=== PATIENT | male | born 1955 | race Caucasian/White ===

== ENCOUNTER 2018-09-22 18:26 | Emergency (ER) | payer OTHER ==
--- NOTE | 2018-09-22 18:42 | PDOC ---
History of Present Illness - General Stated Complaint: VOMITTING BLOOD Time Seen by Provider: 09/22/18 18:41 - History of Present Illness Initial Comments: Evan Galindo is a 62yo man with a PMH of kidney transplant on immunosuppression, HTN, HLD, DM, gout and stomach CA s/p surgical intervention one week ago at [facility] who presents with severe LUQ pain and witnessed hematemesis at home today. He and his family report that he was diagnosed with stomach cancer and had surgery last week in which "40% of his stomach was removed." THey are unsure exactly what the surgery entailed. He had been doing wlel at home, but he had several episodes of maroon colored vomiting today with severe left upper abdominal pain. His family witnessed the event and agree. They called an ambulance, and he apparently had several more episodes of hematemesis on the way to the hospital. He currently reports 6/10 LUQ pain that feels "like gas." He states that the pain is not sharp, burning, or cramping but is unable to qualify it further. While in the ED, he had large volume hematemesis that appeared to be mark blood. Past History - Past Medical History Allergies/Adverse Reactions: Allergies Allergy/AdvReac Type Severity Reaction Status Date / Time No Known Allergies Allergy Verified 09/22/18 18:43 Home Medications: Ambulatory Orders Allopurinol [Zyloprim -] 100 mg PO DAILY 03/01/18 Carvedilol [Coreg -] 12.5 mg PO BID 03/01/18 Clonidine HCl 0.3 mg PO BID 03/01/18 Colchicine [Colcrys] 0.6 mg PO DAILY 03/01/18 Glipizide [Glucotrol Xl] 2.5 mg PO DAILY 03/01/18 Minoxidil 2.5 mg PO BID 03/01/18 Mycophenolate Mofetil [Cellcept] 500 mg PO TID 03/01/18 Prednisone 5 mg PO BID 03/01/18 Simvastatin 10 mg PO DAILY 03/01/18 Sodium Bicarbonate - 650 mg PO TID 03/01/18 Tacrolimus 4 mg PO BID 03/01/18 Miscellaneous Drug Not In Syst [Outpatient Lab Test] 1 each ASDIR #1 misc 04/14 Miscellaneous Drug Not In Syst [Outpatient Lab Test] 1 each ASDIR #1 misc 04/14 CVA: No COPD: No Dialysis: No (FORMER DIALYSIS) HTN: Yes - Immunization History Immunization Up to Date: Yes - Suicide/Smoking/Psychosocial Hx Smoking Status: No Smoking History: Never smoked Number of Cigarettes Smoked Daily: 0 Hx Alcohol Use: No Drug/Substance Use Hx: No Review of Systems - Review of Systems Comments:: 09/22/18 20:21 Did not obtain given acuity of presentation *Physical Exam - Physical Exam Comments: General: Uncomfortable, writhing in bed. HEENT: PERRL, EOMI, MMM, voice normal Cards: RRR, no murmur appreciated Pulm: Comfortable on room air, clear to auscultation bilaterally Abd: Soft, non-distended. Very TTP in LUQ. Several laparoscopic incision on lower abdomen, clean, dermabond intact, no bleeding or drainage. Ext: Moves all extremities Skin: Pale Neuro: A&Ox3, CN grossly intact, normal speech, motor/sensory grossly intact and symmetric Psych: Mood appropriate to situation ED Treatment Course - LABORATORY CBC & Chemistry Diagram: 09/22/18 20:35 09/22/18 19:01 Medical Decision Making - Medical Decision Making 09/22/18 20:23 Evan Galindo is a 62yo man with a PMH of kidney transplant, HTN, HLD, DM, stomach cancer s/o recent surgical intervention one week ago who presents with severe, acute onset of LUQ pain and witnessed hematemesis. - Initial evaluation underway when patient started to have large volume, frankly bloody, bright red hematemesis - 2u uncrossmatched blood ordered - CBC, CMP, PT, PTT, type and screen, EKG, CXR ordered - Bedside ultrasound completed by Dr Jacome - Small pericardial effusion - Sign of early tamponade physiology - Protonix drip, morphine 2mg for pain, IV zofran for nausea Hgb returned at 6.3, actual hemoglobin most likely much lower given active hematemesis over 1L witnessed in the ED - Additional 2u RBCs and 2u FFP ordered - Multiple calls placed to patient's surgeon, Dr Herman, at [facility] - Multiple calls placed to [place] transfer center Update: - Spoke with Dr Cally Valenzuela, surgeon vocational services specialist at [place] - Per request, calls placed to surgical, GI and IR services here. Dr Parker and Dr Valdez both recommending transfer to [place] as Mr Galindo follows there for his medical care including the recent surgery and transplant - Additional calls placed to Dr Valenzuela. Will accept as a transfer per surg onc Dr Daniel Faith - Call placed to [place] transfer center for ED to ED transfer - Transfer paperwork completed by patient Update: - Accepted by Dr Grande in ED at [place] - Critical care transport team to take pt - CBC ordered prior to transfer Seen and discussed with Dr Ayaz Tidwell PGY1 *DC/Admit/Observation/Transfer Diagnosis at time of Disposition: GI bleed - Discharge Dispostion Disposition: TRANSFER ACUTE CARE/OTHER HOSP Condition at time of disposition: Critical - Referrals - Patient Instructions - Post Discharge Activity
[2018-09-22 18:46] VITALS: BMI 22.6
[2018-09-22] MEDS ORDERED: SODIUM CHLORIDE 1,000 ML IV STA (18:50)
[2018-09-22] MEDS ORDERED: morphine CARPU-JECT 2 MG/1 ML DISP.SYRIN IVPUSH ONE (18:51)
[2018-09-22] MEDS ORDERED: ONDANSETRON 4 MG/2 ML VIAL ONE (18:53)
[2018-09-22] MEDS ORDERED: ONDANSETRON 4 MG/2 ML VIAL IVPUSH ONE (18:53)
[2018-09-22] MEDS ORDERED: PANTOPRAZOLE SODIUM 40 MG VIAL ONE (18:55)
[2018-09-22] MEDS ORDERED: PANTOPRAZOLE SODIUM 40 MG/100 ML BAG IVPB ONE (18:55)
[2018-09-22] MEDS ORDERED: PANTOPRAZOLE SODIUM 80 MG in SODIUM CHLORIDE 100 ML IVPB SCH (19:00)
[2018-09-22 19:14] LABS: BASO % 0.3 % (0-2.0); EOS % 2.9 % (0-4.5); HEMATOCRIT 20.3 % (35.4-49); LYMPH % 25.3 % (8-40); MCH 27.1 pg (25.7-33.7); MCHC 31.1 g/dl (32.0-35.9); MEAN CELL VOLUME 87.2 fl (80-96); MEAN PLT VOLUME 8.1 fl (7.5-11.1); MONO % 10.1 % (3.8-10.2); NEUT % 61.4 % (42.8-82.8); PLATELET COUNT 433 K/MM3 (134-434); RBC 2.32 M/mm3 (4.00-5.60); RDW 14.2 % (11.9-15.9); RETICULOCYTES 1.29 % (0.5-1.5)
[2018-09-22 19:15] LABS: HEMOGLOBIN 6.3 GM/dL (11.7-16.9)
--- NOTE | 2018-09-22 19:21 | PDOC ---
Attending Attestation - HPI HPI: 09/22/18 20:01 The patient is a 62 year old male with a significant PMH of diabetes, hypertension, dialysis (10 years ago) CKD s/p right sided renal transplant who presents to the emergency department via EMS with left upper quadrant pain since earlier today. The patient reports that he was at home when he began to experience his LUQ pain. He also reports some associated bloody emesis since about 4 pm today. The patient describes his emesis as bright red. The patient states that he recently had surgery for stomach cancer about 1 week ago at [facility]. . He denies any nausea or pain on exam. The patient denies any other symptoms or complaints. Documentation prepared by Bigg Hartmann, acting as medical record specialist for Brianna Jacome MD. <Bigg Hartmann - Last Filed: 09/22/18 20:01> - Resident Resident Name: Nadia Tidwell - ED Attending Attestation I have performed the following: I have examined & evaluated the patient, The case was reviewed & discussed with the resident, I agree w/resident's findings & plan, Exceptions are as noted - Physicial Exam PE: 09/23/18 02:57 Gen: awake, pale, actively vomiting blood upon arrival - bright red HEENT: pale conjunctiva, BRB in the mouth heart: +s1s2 reg lungs: cta b/l abd: soft, mild epigastric ttp, laprascopic incision to abd with dermabond intact, no warmth, no drainage, no redness ext: no c/c/e, LUE av fistula in place with bruit and thrill neuro: cn ii-xii grossly intact, no focal deficits - Critical Care Time Total Critical Care Time: 90 Critical Care Statement: The care of this patient involved high complexity decision making to prevent further life threatening deterioration of the patient 's condition and/or to evaluate & treat vital organ system(s) failure or risk of failure. - Medical Decision Making 09/22/18 19:20 I, Dr. Brianna Jacome, DO, attest that this document has been prepared under my direction and personally reviewed by me in its entirety. I further attest, that it accurately reflects all work, treatment, procedures and medical decision -making performed by me. 09/22/18 19:29 a/p: 62yo male with hx of ESRD s/p renal transplant, hx of gastric surgery 1 week ago with vomiting of BRB -vomiting started at 4p today -multiple episodes of vomiting BRB -pt surgery was 1 week ago -kidney transplant 10 years ago -hx of dm htn -pt with about 2 liters BRB upon arrival with medics -pt very pale -nauseated, epigastric pain -surgery at [facility] -uncrossed blood ordered 2 units bedside ultrasound - fast negative for intraabd ff, but has pericardial effusion with early rv collapse -will give protonix and protonix gtt -STAT call placed to the surgeon with a call to the transfer center -will continue to monitor 09/22/18 19:33 hgb 6 will order 2 more units pRBC will also add 2 units FFP 09/22/18 19:35 cxr clear 09/22/18 19:35 resident discussing the case with the surgeon at [facility] 09/22/18 20:23 multiple discussions had with Dr. Valenzuela from [facility] - she requests calls to our surgical, gi teams discussed the case with Dr. Ferrer who recommends transfusion and transfer back to his surgeon case discussed with Dr. Valdez who recommends transfer back to his surgeon another call placed to Dr. Valenzuela - [phone] who states she will discuss with the patients surgeon and call us back. 09/22/18 20:[address] Valenzuela who states the patient will need to be transferred to the ED at [facility] on the [place]. Accepted under Daniel Faith, but needs ER to ER transfer. Call placed to the transfer center at [facility] for ER to ER transfer 09/22/18 20:[address] Grande at [facility] in the ED who accepts pt in transfer 09/22/18 21:06 repeat hgb 7.2 vss 09/22/18 21:09 dr. Valenzuela updated on the patients status 09/22/18 21:36 called back by the [place] transfer center who requests pt now be transferred to [facility] - accepting surgeon is Dr. Mercedes. Case was discussed with the ED physician Dr. Mehta who is aware of all conditions and interventions performed here family updated medics updated pt has left the ED <Brianna Jacome - Last Filed: 09/23/18 02:59> Heart Score/ECG Review - ECG Intrepretation Comment:: 09/22/18 19:34 sinus at 89, LAFB, nl axis, hyperacute t waves, t wave inversions avl- abnl ekg <Brianna Jacome - Last Filed: 09/23/18 02:59>
[2018-09-22 19:27] LABS: INR 1.14 (0.83-1.09); PROTHROMBIN TIME (PATIENT) 13.5 SEC (9.7-13.0)
[2018-09-22 19:33] LABS: ALBUMIN 2.4 g/dl (3.4-5.0); ALK PHOS 136 U/L (45-117); ANION GAP 11 MMOL/L (8-16); BILIRUBIN,TOTAL 0.2 mg/dL (0.2-1); BLOOD UREA NITROGEN 35 mg/dL (7-18); CALCIUM 7.9 mg/dL (8.5-10.1); CHLORIDE 112 mmol/L (98-107); CO2 22 mmol/L (21-32); GLUCOSE,RANDOM 151 mg/dL (74-106); POTASSIUM 5.1 mmol/L (3.5-5.1); SGOT/AST 12 U/L (15-37); SGPT/ALT 22 U/L (13-61); SODIUM 145 mmol/L (136-145)
[2018-09-22] MEDS ORDERED: PANTOPRAZOLE SODIUM 40 MG VIAL IVPUSH ONE (20:06)
[2018-09-22] MEDS ORDERED: ONDANSETRON 4 MG/2 ML VIAL IVPUSH PRN (20:09)
[2018-09-22 20:52] LABS: HEMOGLOBIN 7.2 GM/dL (11.7-16.9); MCH 28.7 pg (25.7-33.7); MCHC 32.6 g/dl (32.0-35.9); MEAN CELL VOLUME 88.1 fl (80-96); MEAN PLT VOLUME 7.4 fl (7.5-11.1); PLATELET COUNT 317 K/MM3 (134-434); RBC 2.49 M/mm3 (4.00-5.60); RDW 14.2 % (11.9-15.9); WHITE BLOOD COUNT 9.6 K/mm3 (4.0-10.0)
[2018-09-22] MEDS ORDERED: METOCLOPRAMIDE HCL INJECTION 10 MG/2 ML VIAL IVPUSH ONE (21:02)
[2018-09-22] MEDS ORDERED: METOCLOPRAMIDE HCL INJECTION 10 MG/2 ML VIAL ONE (21:03)
[2018-09-22] MEDS ORDERED: MORPHINE SULFATE 2 MG/ML VIAL ONE (21:09)
[2018-09-22 21:30] VITALS: TEMP 98.2
[2018-09-22 21:43] VITALS: BP 163/82; PULSE 82
--- NOTE | 2018-09-23 14:59 | EKG ---
Test Reason : Blood Pressure : / mmHG Vent. Rate : 089 BPM Atrial Rate : 089 BPM P-R Int : 154 ms QRS Dur : 080 ms QT Int : 372 ms P-R-T Axes : -07 -53 075 degrees QTc Int : 452 ms POOR DATA QUALITY, INTERPRETATION MAY BE ADVERSELY AFFECTED NORMAL SINUS RHYTHM LEFT ANTERIOR FASCICULAR BLOCK Confirmed by MD Shan, Jakob ([id number]) on 09/23/2018 2:59:14 PM Referred By: Confirmed By:Jakob Torrez MD
== END 2018-09-22 21:27 | disposition short-term general hospital (02) ==
LOC: JER 18:26
PROC: 3E033GC Introduction of Other Therapeutic Substance into Peripheral Vein, Percutaneous Approach (ICD-10-PCS; principal; 2018-09-22)
PROC: 3E033NZ Introduction of Analgesics, Hypnotics, Sedatives into Peripheral Vein, Percutaneous Approach (ICD-10-PCS; 2018-09-22)
PROC: 3E033GC Introduction of Other Therapeutic Substance into Peripheral Vein, Percutaneous Approach (ICD-10-PCS; 2018-09-22)
PROC: 3E033GC Introduction of Other Therapeutic Substance into Peripheral Vein, Percutaneous Approach (ICD-10-PCS; 2018-09-22)
PROC: 3E033GC Introduction of Other Therapeutic Substance into Peripheral Vein, Percutaneous Approach (ICD-10-PCS; 2018-09-22)
PROC: 30233N1 Transfusion of Nonautologous Red Blood Cells into Peripheral Vein, Percutaneous Approach (ICD-10-PCS; 2018-09-22)
DX: K92.2 Gastrointestinal hemorrhage, unspecified (principal); I10 Essential (primary) hypertension; E11.9 Type 2 diabetes mellitus without complications; Z79.84 Long term (current) use of oral hypoglycemic drugs; E78.5 Hyperlipidemia, unspecified; Z85.028 Personal history of other malignant neoplasm of stomach; Z98.890 Other specified postprocedural states; Z90.3 Acquired absence of stomach [part of]; Z94.0 Kidney transplant status
CPT/HCPCS: 36415; 36430; 71045-TC-FY; 80053; 82550; 84484; 85025; 85027; 85044; 85610; 85730; 86850; 86900; 86901; 86922; 93005; 93010; 96365; 96366; 96375; 99285-25; J7030; P9038; P9058

== ENCOUNTER 2021-06-14 10:50 | Inpatient (IN) | payer OTHER ==
[2021-06-14] MEDS ORDERED: CEFTRIAXONE 1,000 MG in DEXTROSE 5%-WATER - 50 ML IVPB ONE (11:49)
[2021-06-14 12:20] LABS: BASO % 0.2 % (0-2.0); EOS % 0.6 % (0-4.5); HEMATOCRIT 31.2 % (35.4-49); HEMOGLOBIN 9.8 GM/dL (11.7-16.9); LYMPH % 8.7 % (8-40); MCH 27.5 pg (25.7-33.7); MCHC 31.4 g/dl (32.0-35.9); MEAN CELL VOLUME 87.5 fl (80-96); MONO % 10.9 % (3.8-10.2); NEUT % 79.6 % (42.8-82.8); PLATELET COUNT 145 10^3/uL (134-434); RBC 3.57 M/mm3 (4.00-5.60); RDW 15.5 % (11.9-15.9); WHITE BLOOD COUNT 5.9 K/mm3 (4.0-10.0)
[2021-06-14] MEDS ORDERED: CEFTRIAXONE 1 GM/50 ML BAG ONE (12:26)
[2021-06-14 12:28] LABS: CHLORIDE 99 mmol/L (98-107); SODIUM 134 mmol/L (136-145)
[2021-06-14 12:31] LABS: ALBUMIN 2.8 g/dl (3.4-5.0); ANION GAP 10 MMOL/L (8-16); BLOOD UREA NITROGEN 36.9 mg/dL (7-18); CO2 26 mmol/L (21-32); GLUCOSE,RANDOM 182 mg/dL (74-106)
[2021-06-14 12:34] LABS: CREATININE 4.6 mg/dL (0.55-1.3); SGOT/AST 13 U/L (15-37); SGPT/ALT 14 U/L (13-61)
[2021-06-14 12:36] LABS: BILIRUBIN,TOTAL 0.5 mg/dL (0.2-1); TOT PROT 5.8 g/dl (6.4-8.2)
[2021-06-14 12:37] LABS: ALK PHOS 108 U/L (45-117)
[2021-06-14] MEDS ORDERED: ACETAMINOPHEN 325 MG TABLET (FP) PO PRN (14:27)
[2021-06-14] MEDS ORDERED: MYCOPHENOLATE MOFETIL 500 MG TABLET PO SCH (14:45)
[2021-06-14] MEDS ORDERED: HEPARIN NA (PORCINE) 5,000 UNITS/ML 1ML VIAL ONE (15:01)
[2021-06-14] MEDS: HEPARIN NA (PORCINE) 5,000 UNITS/ML 1ML VIAL SQ SCH ×2 (15:15→21:18)
[2021-06-14] MEDS: ALLOPURINOL 100 MG TABLET (FP) PO SCH (15:41)
[2021-06-14] MEDS: INSULIN SLIDING SCALE (NOVOLOG) 1 VIAL SQ SCH ×2 (15:50→21:22)
[2021-06-14 18:32] LABS: EPI CELLS >36 /uL (0-25.1); HYALINE CASTS 6 /uL (0-3.1); URINE APPEARANCE TURBID; URINE BACTERIA 37 /uL (0-1359); URINE BILIRUBIN NEGATIVE (NEGATIVE); URINE COLOR DK YELLOW; URINE GLUCOSE (UA) NEGATIVE (NEGATIVE); URINE KETONE TRACE (NEGATIVE); URINE LEUK ESTERASE 3+ (NEGATIVE); URINE NITRITE NEGATIVE (NEGATIVE); URINE PROTEIN 3+ (NEGATIVE); URINE RBC 168 /uL (0-23.9); URINE WBC 3420 /uL (0-25.8)
[2021-06-14] MEDS: predniSONE 5 MG TABLET (UD) PO SCH (21:16)
[2021-06-14] MEDS: cloNIDine HCL 0.1 MG TABLET PO SCH (21:16)
[2021-06-14] MEDS: MYCOPHENOLATE MOFETIL 500 MG TABLET PO SCH (22:17)
[2021-06-14] MEDS: TACROLIMUS ANHYDROUS 1 MG CAPSULE PO SCH (22:17)
[2021-06-15] MEDS: HEPARIN NA (PORCINE) 5,000 UNITS/ML 1ML VIAL SQ SCH ×3 (05:33→21:33)
[2021-06-15] MEDS: INSULIN SLIDING SCALE (NOVOLOG) 1 VIAL SQ SCH ×5 (06:05→21:42)
[2021-06-15 08:13] LABS: HEMATOCRIT 30.2 % (35.4-49); HEMOGLOBIN 9.6 GM/dL (11.7-16.9); MCH 27.4 pg (25.7-33.7); MCHC 31.7 g/dl (32.0-35.9); MEAN CELL VOLUME 86.4 fl (80-96); MEAN PLT VOLUME 8.1 fl (7.5-11.1); PLATELET COUNT 154 10^3/uL (134-434); RDW 15.9 % (11.9-15.9); WHITE BLOOD COUNT 5.3 K/mm3 (4.0-10.0)
[2021-06-15 08:37] LABS: BLOOD UREA NITROGEN 47.2 mg/dL (7-18); CALCIUM 7.9 mg/dL (8.5-10.1)
[2021-06-15 08:41] LABS: CREATININE 5.5 mg/dL (0.55-1.3); PHOSPHOROUS 4.3 mg/dL (2.5-4.9)
[2021-06-15] MEDS ORDERED: SODIUM CHLORIDE 250 ML IV PRN (09:03)
[2021-06-15] MEDS ORDERED: DEXTROSE 5%-WATER - 50 ML IVPB ONE (11:23)
[2021-06-15] MEDS ORDERED: CEFEPIME HCL 1 GM VIAL (RESTRICTED TO ID) ONE (11:23)
[2021-06-15] MEDS ORDERED: PT OWN MED DRAWER 7, Y5N ONE ×3 (11:23→15:20)
[2021-06-15] MEDS: predniSONE 5 MG TABLET (UD) PO SCH ×3 (11:29→21:33)
[2021-06-15] MEDS: MYCOPHENOLATE MOFETIL 500 MG TABLET PO SCH ×2 (11:29→14:30)
[2021-06-15] MEDS: cloNIDine HCL 0.1 MG TABLET PO SCH ×3 (11:29→21:32)
[2021-06-15] MEDS: ALLOPURINOL 100 MG TABLET (FP) PO SCH ×2 (11:31→14:29)
[2021-06-15] MEDS: TACROLIMUS ANHYDROUS 1 MG CAPSULE PO SCH ×3 (11:31→21:43)
[2021-06-15] MEDS: CEFEPIME 0.5 GM in DEXTROSE 5%-WATER - 50 ML IVPB SCH ×2 (11:31→14:30)
[2021-06-15 18:12] VITALS: BMI 20.2
[2021-06-16] MEDS: HEPARIN NA (PORCINE) 5,000 UNITS/ML 1ML VIAL SQ SCH ×3 (06:18→21:29)
[2021-06-16] MEDS: INSULIN SLIDING SCALE (NOVOLOG) 1 VIAL SQ SCH ×4 (06:24→21:48)
[2021-06-16 07:32] LABS: BASO % 0.4 % (0-2.0); EOS % 0.1 % (0-4.5); HEMATOCRIT 29.9 % (35.4-49); HEMOGLOBIN 9.5 GM/dL (11.7-16.9); LYMPH % 17.6 % (8-40); MCH 27.5 pg (25.7-33.7); MCHC 31.8 g/dl (32.0-35.9); MEAN CELL VOLUME 86.6 fl (80-96); MONO % 9.2 % (3.8-10.2); NEUT % 72.7 % (42.8-82.8); PLATELET COUNT 174 10^3/uL (134-434); RBC 3.45 M/mm3 (4.00-5.60); RDW 15.5 % (11.9-15.9); WHITE BLOOD COUNT 4.3 K/mm3 (4.0-10.0)
[2021-06-16 07:55] LABS: ALBUMIN 2.6 g/dl (3.4-5.0); BLOOD UREA NITROGEN 32.5 mg/dL (7-18); MAGNESIUM 2.1 mg/dL (1.8-2.4)
[2021-06-16 07:59] LABS: CREATININE 4.1 mg/dL (0.55-1.3); PHOSPHOROUS 4.4 mg/dL (2.5-4.9)
[2021-06-16 08:00] LABS: BILIRUBIN,TOTAL 0.3 mg/dL (0.2-1); TOT PROT 5.6 g/dl (6.4-8.2)
[2021-06-16] MEDS ORDERED: PT OWN MED DRAWER 7, Y5N ONE ×3 (09:30→14:58)
[2021-06-16] MEDS: predniSONE 5 MG TABLET (UD) PO SCH ×2 (09:48→21:29)
[2021-06-16] MEDS: TACROLIMUS ANHYDROUS 1 MG CAPSULE PO SCH ×2 (09:48→21:29)
[2021-06-16] MEDS: cloNIDine HCL 0.1 MG TABLET PO SCH ×2 (09:49→21:29)
[2021-06-16] MEDS: ALLOPURINOL 100 MG TABLET (FP) PO SCH (09:49)
[2021-06-16] MEDS ORDERED: INSULIN (NOVOLOG) ASPART 100 UNITS/ML 10ML VIAL ONE (12:01)
[2021-06-16] MEDS: CEFEPIME 0.5 GM in DEXTROSE 5%-WATER - 50 ML IVPB SCH (12:09)
[2021-06-16] MEDS ORDERED: SODIUM CHLORIDE 250 ML IV PRN (14:53)
[2021-06-17] MEDS: HEPARIN NA (PORCINE) 5,000 UNITS/ML 1ML VIAL SQ SCH ×3 (05:57→21:34)
[2021-06-17] MEDS: INSULIN SLIDING SCALE (NOVOLOG) 1 VIAL SQ SCH ×4 (05:59→21:38)
[2021-06-17 09:08] LABS: BASO % 0.3 % (0-2.0); EOS % 0.4 % (0-4.5); HEMATOCRIT 30.2 % (35.4-49); HEMOGLOBIN 9.5 GM/dL (11.7-16.9); LYMPH % 16.9 % (8-40); MCH 27.4 pg (25.7-33.7); MCHC 31.4 g/dl (32.0-35.9); MEAN PLT VOLUME 8.2 fl (7.5-11.1); MONO % 10.3 % (3.8-10.2); NEUT % 72.1 % (42.8-82.8); PLATELET COUNT 225 10^3/uL (134-434); RBC 3.47 M/mm3 (4.00-5.60); RDW 15.6 % (11.9-15.9); WHITE BLOOD COUNT 5.6 K/mm3 (4.0-10.0)
[2021-06-17 09:24] LABS: ALBUMIN 2.7 g/dl (3.4-5.0)
[2021-06-17 09:26] LABS: BLOOD UREA NITROGEN 46.7 mg/dL (7-18); CALCIUM 8.2 mg/dL (8.5-10.1); MAGNESIUM 2.2 mg/dL (1.8-2.4)
[2021-06-17 09:29] LABS: BILIRUBIN,TOTAL 0.3 mg/dL (0.2-1); CREATININE 4.9 mg/dL (0.55-1.3); PHOSPHOROUS 4.5 mg/dL (2.5-4.9); TOT PROT 5.7 g/dl (6.4-8.2)
[2021-06-17] MEDS: cloNIDine HCL 0.1 MG TABLET PO SCH ×2 (12:00→21:33)
[2021-06-17] MEDS: predniSONE 5 MG TABLET (UD) PO SCH ×2 (12:00→21:33)
[2021-06-17] MEDS: ALLOPURINOL 100 MG TABLET (FP) PO SCH (12:01)
[2021-06-17] MEDS: CEFEPIME 0.5 GM in DEXTROSE 5%-WATER - 50 ML IVPB SCH (12:01)
[2021-06-17] MEDS ORDERED: PT OWN MED DRAWER 7, Y5N ONE ×2 (13:17→22:43)
[2021-06-17] MEDS: TACROLIMUS ANHYDROUS 1 MG CAPSULE PO SCH ×2 (13:27→22:44)
[2021-06-18] MEDS: HEPARIN NA (PORCINE) 5,000 UNITS/ML 1ML VIAL SQ SCH ×3 (05:10→21:14)
[2021-06-18] MEDS: INSULIN SLIDING SCALE (NOVOLOG) 1 VIAL SQ SCH ×4 (06:06→21:19)
[2021-06-18 08:42] LABS: BASO % 0.5 % (0-2.0); EOS % 0.3 % (0-4.5); HEMATOCRIT 31.9 % (35.4-49); HEMOGLOBIN 9.9 GM/dL (11.7-16.9); LYMPH % 22.8 % (8-40); MCH 27.1 pg (25.7-33.7); MEAN CELL VOLUME 87.5 fl (80-96); MEAN PLT VOLUME 8.2 fl (7.5-11.1); MONO % 11.3 % (3.8-10.2); NEUT % 65.1 % (42.8-82.8); PLATELET COUNT 277 10^3/uL (134-434); RBC 3.64 M/mm3 (4.00-5.60); RDW 15.6 % (11.9-15.9); WHITE BLOOD COUNT 5.5 K/mm3 (4.0-10.0)
[2021-06-18 09:09] LABS: CALCIUM 8.7 mg/dL (8.5-10.1); MAGNESIUM 2.1 mg/dL (1.8-2.4)
[2021-06-18 09:12] LABS: CREATININE 3.6 mg/dL (0.55-1.3); PHOSPHOROUS 4.1 mg/dL (2.5-4.9)
[2021-06-18 09:14] LABS: BILIRUBIN,TOTAL 0.4 mg/dL (0.2-1); TOT PROT 6.4 g/dl (6.4-8.2)
[2021-06-18] MEDS ORDERED: PT OWN MED DRAWER 7, Y5N ONE ×3 (09:33→20:44)
[2021-06-18] MEDS: CEFEPIME 0.5 GM in DEXTROSE 5%-WATER - 50 ML IVPB SCH (09:48)
[2021-06-18] MEDS: predniSONE 5 MG TABLET (UD) PO SCH ×2 (09:48→21:13)
[2021-06-18] MEDS: cloNIDine HCL 0.1 MG TABLET PO SCH ×2 (09:48→21:12)
[2021-06-18] MEDS: ALLOPURINOL 100 MG TABLET (FP) PO SCH (09:48)
[2021-06-18] MEDS: TACROLIMUS ANHYDROUS 1 MG CAPSULE PO SCH ×2 (09:49→21:13)
[2021-06-18] MEDS ORDERED: SODIUM CHLORIDE 250 ML IV PRN (16:42)
[2021-06-19] MEDS: HEPARIN NA (PORCINE) 5,000 UNITS/ML 1ML VIAL SQ SCH ×2 (05:19→15:10)
[2021-06-19] MEDS: INSULIN SLIDING SCALE (NOVOLOG) 1 VIAL SQ SCH ×3 (06:26→16:59)
[2021-06-19 08:43] LABS: BASO % 0.7 % (0-2.0); EOS % 1.3 % (0-4.5); HEMATOCRIT 28.1 % (35.4-49); HEMOGLOBIN 8.9 GM/dL (11.7-16.9); LYMPH % 23.8 % (8-40); MCH 27.6 pg (25.7-33.7); MCHC 31.8 g/dl (32.0-35.9); MEAN CELL VOLUME 86.7 fl (80-96); MEAN PLT VOLUME 7.5 fl (7.5-11.1); NEUT % 60.2 % (42.8-82.8); PLATELET COUNT 272 10^3/uL (134-434); RBC 3.25 M/mm3 (4.00-5.60); RDW 15.8 % (11.9-15.9); WHITE BLOOD COUNT 5.4 K/mm3 (4.0-10.0)
[2021-06-19] MEDS ORDERED: amLODIPine BESYLATE 10 MG TABLET (FP) PO ONE (09:00)
[2021-06-19 09:03] LABS: ALBUMIN 2.6 g/dl (3.4-5.0); BLOOD UREA NITROGEN 52.4 mg/dL (7-18)
[2021-06-19 09:07] LABS: BILIRUBIN,TOTAL 0.2 mg/dL (0.2-1); CREATININE 4.2 mg/dL (0.55-1.3); PHOSPHOROUS 4.7 mg/dL (2.5-4.9)
[2021-06-19 09:09] LABS: TOT PROT 5.5 g/dl (6.4-8.2)
[2021-06-19] MEDS ORDERED: PT OWN MED DRAWER 7, Y5N ONE (11:25)
[2021-06-19] MEDS: predniSONE 5 MG TABLET (UD) PO SCH (11:40)
[2021-06-19] MEDS: cloNIDine HCL 0.1 MG TABLET PO SCH (11:40)
[2021-06-19] MEDS: ALLOPURINOL 100 MG TABLET (FP) PO SCH (11:40)
[2021-06-19] MEDS: CEFEPIME 0.5 GM in DEXTROSE 5%-WATER - 50 ML IVPB SCH (11:41)
[2021-06-19] MEDS: TACROLIMUS ANHYDROUS 1 MG CAPSULE PO SCH (11:41)
[2021-06-19 14:08] VITALS: BP 154/68; PULSE 64; TEMP 98.7
[2021-06-19] MEDS ORDERED: amLODIPine BESYLATE 10 MG TABLET (FP) PO SCH (15:15)
[2021-06-19] MEDS ORDERED: CARVEDILOL 25 MG TABLET (FP) PO SCH (22:00)
[2021-06-20] MEDS ORDERED: amLODIPine BESYLATE 10 MG TABLET (FP) PO SCH (10:00)
== END 2021-06-19 18:33 | disposition home or self-care (01) | DRG 689 ==
LOC: JER 10:50 → JERBED 11:51 → J8W 17:37
PROVIDERS: ADMIT Internal Medicine; ATTEND Internal Medicine
PROC: 5A1D70Z Performance of Urinary Filtration, Intermittent, Less than 6 Hours Per Day (ICD-10-PCS; principal; 2021-06-19)
DX: N39.0 Urinary tract infection, site not specified (principal); N18.6 End stage renal disease; R78.81 Bacteremia; B96.20 Unspecified Escherichia coli [E. coli] as the cause of diseases classified elsewhere; D64.9 Anemia, unspecified; E11.9 Type 2 diabetes mellitus without complications; I10 Essential (primary) hypertension; M10.9 Gout, unspecified; Z99.2 Dependence on renal dialysis
CPT/HCPCS: 36415; 71045-TC-FY; 80048; 80053; 80197; 81003; 82550; 82962; 83605; 83735; 84100; 84484; 85025; 85027; 86803; 87040; 87086; 87186; 87340; 93005; 93010; 99285-25; C9803; J0735; J1644; J7517; U0003; U0005

== ENCOUNTER 2021-12-14 12:29 | Inpatient (IN) | payer OTHER ==
[2021-12-14] MEDS ORDERED: DEXTROSE 50%-WATER - 25 GM/50 ML VIAL IVPUSH ONE (13:32)
[2021-12-14] MEDS ORDERED: INSULIN REGULAR HUMAN 100 UNITS/ML *VIAL IVPUSH ONE (13:32)
[2021-12-14] MEDS ORDERED: CALCIUM GLUCONATE 10% - 1,000 MG/10 ML VIAL IVPUSH ONE (13:34)
[2021-12-14] MEDS ORDERED: CALCIUM GLUCONATE 10% - 1,000 MG/10 ML VIAL ONE (13:36)
[2021-12-14] MEDS ORDERED: DEXTROSE 50%-WATER 25 GM/50 ML DISP.SYRIN ONE (13:37)
[2021-12-14] MEDS ORDERED: INSULIN REGULAR HUMAN 100 UNITS/ML *VIAL ONE (13:37)
[2021-12-14] MEDS ORDERED: ACETAMINOPHEN INJECTION 100 ML IVPB ONE (13:42)
[2021-12-14] MEDS ORDERED: ACETAMINOPHEN 1000 MG/100 ML BAG IVPB ONE (14:06)
[2021-12-14 14:50] LABS: BASO % 0.3 % (0-2.0); HEMATOCRIT 31.3 % (35.4-49); HEMOGLOBIN 10.3 GM/dL (11.7-16.9); LYMPH % 28.3 % (8-40); MCH 28.1 pg (25.7-33.7); MEAN CELL VOLUME 85.2 fl (80-96); MEAN PLT VOLUME 8.1 fl (7.5-11.1); MONO % 7.1 % (3.8-10.2); NEUT % 64.3 % (42.8-82.8); PLATELET COUNT 177 10^3/uL (134-434); RBC 3.68 M/mm3 (4.00-5.60); RDW 14.7 % (11.9-15.9); WHITE BLOOD COUNT 6.2 K/mm3 (4.0-10.0)
[2021-12-14 14:55] LABS: INR 1.01 (0.83-1.09); PROTHROMBIN TIME (PATIENT) 11.6 SEC (9.7-13.0)
[2021-12-14 14:57] LABS: ACTIVATED PTT 30.4 SECONDS (25.2-36.5)
[2021-12-14 15:00] LABS: CHLORIDE 96 mmol/L (98-107); SODIUM 133 mmol/L (136-145)
[2021-12-14 15:04] LABS: ALBUMIN 3.1 g/dl (3.4-5.0); ANION GAP 15 MMOL/L (8-16); BLOOD UREA NITROGEN 83.7 mg/dL (7-18); CO2 22 mmol/L (21-32); GLUCOSE,RANDOM 116 mg/dL (74-106)
[2021-12-14 15:06] LABS: BILIRUBIN,DIRECT 0.2 mg/dL (0.0-0.2)
[2021-12-14 15:07] LABS: SGOT/AST 19 U/L (15-37); SGPT/ALT 14 U/L (13-61)
[2021-12-14 15:08] LABS: BILIRUBIN,TOTAL 0.5 mg/dL (0.2-1); TOT PROT 6.8 g/dl (6.4-8.2)
[2021-12-14 15:10] LABS: ALK PHOS 94 U/L (45-117)
[2021-12-14 15:24] LABS: CREATININE 10.6 mg/dL (0.55-1.3)
[2021-12-14 15:35] LABS: LDH 338 U/L (87-246)
[2021-12-14 15:36] LABS: EPI CELLS 17 /uL (0-25.1); HYALINE CASTS 0 /uL (0-3.1); PH,URINE 7.5 (5.0-8.0); URINE APPEARANCE CLEAR; URINE BACTERIA 54 /uL (0-1359); URINE BILIRUBIN NEGATIVE (NEGATIVE); URINE COLOR YELLOW; URINE GLUCOSE (UA) NEGATIVE (NEGATIVE); URINE KETONE NEGATIVE (NEGATIVE); URINE LEUK ESTERASE NEGATIVE (NEGATIVE); URINE NITRITE NEGATIVE (NEGATIVE); URINE PROTEIN 3+ (NEGATIVE); URINE RBC 3 /uL (0-23.9); URINE UROBILINOGEN 0.2 mg/dL (0.2-1.0); URINE WBC 10 /uL (0-25.8)
[2021-12-14] MEDS ORDERED: SODIUM CHLORIDE 250 ML IV PRN (16:50)
[2021-12-14] MEDS ORDERED: SODIUM ZIRCONIUM CYCLOSILICATE (LOKELMA) 5 GM PACKET PO ONE (16:54)
[2021-12-14] MEDS ORDERED: SODIUM ZIRCONIUM CYCLOSILICATE (LOKELMA) 5 GM PACKET ONE (17:14)
[2021-12-14 18:18] LABS: CHLORIDE 97 mmol/L (98-107); SODIUM 135 mmol/L (136-145)
[2021-12-14 18:20] LABS: ANION GAP 15 MMOL/L (8-16); BLOOD UREA NITROGEN 85.8 mg/dL (7-18); CO2 23 mmol/L (21-32); GLUCOSE,RANDOM 85 mg/dL (74-106)
[2021-12-14] MEDS ORDERED: PANTOPRAZOLE 20 MG TABLET PO ONE ×2 (22:26→22:57)
[2021-12-14] MEDS ORDERED: CARVEDILOL 12.5 MG TABLET (FP) ONE ×2 (22:26→22:56)
[2021-12-14] MEDS ORDERED: cloNIDine HCL 0.1 MG TABLET ONE ×2 (22:26→22:57)
[2021-12-14] MEDS ORDERED: hydrALAZINE HCL 25 MG TABLET (FP) ONE ×2 (22:27→22:57)
[2021-12-14] MEDS ORDERED: ATORVASTATIN CA 40 MG TABLET (FP) ONE ×2 (22:27→22:57)
[2021-12-14] MEDS ORDERED: INSULIN SLIDING SCALE (NOVOLOG) 1 VIAL SQ ONE (22:34)
[2021-12-14] MEDS: cloNIDine HCL 0.1 MG TABLET PO SCH (23:05)
[2021-12-14] MEDS: hydrALAZINE HCL 25 MG TABLET (FP) PO SCH (23:05)
[2021-12-14] MEDS: INSULIN SLIDING SCALE (NOVOLOG) 1 VIAL SQ SCH (23:05)
[2021-12-14] MEDS: CARVEDILOL 25 MG TABLET (FP) PO SCH (23:05)
[2021-12-14] MEDS: ATORVASTATIN CA 40 MG TABLET (FP) PO SCH (23:05)
[2021-12-14] MEDS: PANTOPRAZOLE 20 MG TABLET PO SCH (23:05)
[2021-12-15] MEDS: INSULIN SLIDING SCALE (NOVOLOG) 1 VIAL SQ SCH ×3 (07:26→22:32)
[2021-12-15] MEDS ORDERED: hydrALAZINE HCL 25 MG TABLET (FP) ONE ×3 (07:51→21:51)
[2021-12-15] MEDS ORDERED: ACETAMINOPHEN INJECTION 100 ML IVPB ONE ×2 (07:51→22:22)
[2021-12-15] MEDS: hydrALAZINE HCL 25 MG TABLET (FP) PO SCH ×3 (08:06→22:04)
[2021-12-15] MEDS ORDERED: amLODIPine BESYLATE 5 MG TABLET (FP) ONE (09:45)
[2021-12-15] MEDS ORDERED: PANTOPRAZOLE 20 MG TABLET PO ONE ×2 (09:46→21:51)
[2021-12-15] MEDS ORDERED: cloNIDine HCL 0.1 MG TABLET ONE ×2 (09:46→21:51)
[2021-12-15] MEDS ORDERED: CARVEDILOL 12.5 MG TABLET (FP) ONE ×2 (09:46→21:50)
[2021-12-15] MEDS: cloNIDine HCL 0.1 MG TABLET PO SCH ×2 (09:53→22:04)
[2021-12-15] MEDS: amLODIPine BESYLATE 10 MG TABLET (FP) PO SCH (09:53)
[2021-12-15] MEDS: CARVEDILOL 25 MG TABLET (FP) PO SCH ×2 (09:53→22:04)
[2021-12-15] MEDS: PANTOPRAZOLE 20 MG TABLET PO SCH ×2 (09:53→22:04)
[2021-12-15] MEDS ORDERED: ATORVASTATIN CA 40 MG TABLET (FP) ONE (21:51)
[2021-12-15] MEDS ORDERED: HEPARIN NA (PORCINE) 5,000 UNITS/ML 1ML VIAL ONE (21:51)
[2021-12-15] MEDS: ATORVASTATIN CA 40 MG TABLET (FP) PO SCH (22:04)
[2021-12-15] MEDS: HEPARIN NA (PORCINE) 5,000 UNITS/ML 1ML VIAL SQ SCH (22:04)
[2021-12-15] MEDS ORDERED: ACETAMINOPHEN 1000 MG/100 ML BAG IVPB ONE (22:18)
[2021-12-15] MEDS ORDERED: INSULIN SLIDING SCALE (NOVOLOG) 1 VIAL SQ ONE (22:24)
[2021-12-16] MEDS ORDERED: ACETAMINOPHEN 1000 MG/100 ML BAG IVPB ONE (03:42)
[2021-12-16 04:56] VITALS: BMI 23.5
[2021-12-16] MEDS: INSULIN SLIDING SCALE (NOVOLOG) 1 VIAL SQ SCH ×4 (06:00→21:16)
[2021-12-16] MEDS: hydrALAZINE HCL 25 MG TABLET (FP) PO SCH ×3 (06:46→21:15)
[2021-12-16] MEDS: HEPARIN NA (PORCINE) 5,000 UNITS/ML 1ML VIAL SQ SCH ×3 (06:46→21:15)
[2021-12-16] MEDS: CARVEDILOL 25 MG TABLET (FP) PO SCH ×2 (10:44→21:15)
[2021-12-16] MEDS: PANTOPRAZOLE 20 MG TABLET PO SCH ×2 (10:44→21:15)
[2021-12-16] MEDS: amLODIPine BESYLATE 10 MG TABLET (FP) PO SCH (10:44)
[2021-12-16] MEDS: cloNIDine HCL 0.1 MG TABLET PO SCH ×2 (10:44→21:15)
[2021-12-16] MEDS ORDERED: SODIUM CHLORIDE 250 ML IV PRN (11:02)
[2021-12-16 12:15] LABS: BASO % 0.2 % (0-2.0); EOS % 0.3 % (0-4.5); HEMATOCRIT 29.2 % (35.4-49); HEMOGLOBIN 9.1 GM/dL (11.7-16.9); LYMPH % 38.4 % (8-40); MCH 27.2 pg (25.7-33.7); MCHC 31.2 g/dl (32.0-35.9); MEAN CELL VOLUME 87.1 fl (80-96); MEAN PLT VOLUME 8.5 fl (7.5-11.1); MONO % 10.3 % (3.8-10.2); NEUT % 50.8 % (42.8-82.8); PLATELET COUNT 158 10^3/uL (134-434); RBC 3.35 M/mm3 (4.00-5.60); RDW 14.2 % (11.9-15.9); WHITE BLOOD COUNT 4.4 K/mm3 (4.0-10.0)
[2021-12-16 12:33] LABS: CHLORIDE 96 mmol/L (98-107); SODIUM 136 mmol/L (136-145)
[2021-12-16 12:37] LABS: ANION GAP 11 MMOL/L (8-16); CALCIUM 7.5 mg/dL (8.5-10.1); CO2 29 mmol/L (21-32); GLUCOSE,RANDOM 102 mg/dL (74-106)
[2021-12-16 12:41] LABS: PHOSPHOROUS 6.6 mg/dL (2.5-4.9); SGOT/AST 19 U/L (15-37); SGPT/ALT 14 U/L (13-61)
[2021-12-16 12:42] LABS: ALK PHOS 84 U/L (45-117); BILIRUBIN,TOTAL 0.5 mg/dL (0.2-1); LDH 230 U/L (87-246); TOT PROT 5.5 g/dl (6.4-8.2)
[2021-12-16 12:47] LABS: ALBUMIN 2.4 g/dl (3.4-5.0); BLOOD UREA NITROGEN 52.5 mg/dL (7-18)
[2021-12-16 12:51] LABS: ERYTHROCYTE SEDIMENTATION RATE 23 mm/hr (0-20)
[2021-12-16] MEDS ORDERED: REMDESIVIR 200 MG in SODIUM CHLORIDE 250 ML IVPB ONE (18:45)
[2021-12-16] MEDS: ACETAMINOPHEN 500 MG TABLET (FP) PO PRN (19:12)
[2021-12-16] MEDS: ATORVASTATIN CA 40 MG TABLET (FP) PO SCH (21:15)
[2021-12-17] MEDS: HEPARIN NA (PORCINE) 5,000 UNITS/ML 1ML VIAL SQ SCH ×3 (05:53→22:44)
[2021-12-17] MEDS: hydrALAZINE HCL 25 MG TABLET (FP) PO SCH ×2 (05:53→14:04)
[2021-12-17] MEDS: INSULIN SLIDING SCALE (NOVOLOG) 1 VIAL SQ SCH ×4 (06:17→22:45)
[2021-12-17] MEDS: ACETAMINOPHEN 500 MG TABLET (FP) PO PRN (06:43)
[2021-12-17 10:44] LABS: BASO % 0.3 % (0-2.0); EOS % 0.5 % (0-4.5); HEMATOCRIT 28.1 % (35.4-49); HEMOGLOBIN 8.9 GM/dL (11.7-16.9); LYMPH % 39.3 % (8-40); MCH 27.6 pg (25.7-33.7); MCHC 31.5 g/dl (32.0-35.9); MEAN CELL VOLUME 87.6 fl (80-96); MEAN PLT VOLUME 8.3 fl (7.5-11.1); MONO % 10.1 % (3.8-10.2); NEUT % 49.8 % (42.8-82.8); PLATELET COUNT 171 10^3/uL (134-434); RBC 3.21 M/mm3 (4.00-5.60); RDW 14.1 % (11.9-15.9); WHITE BLOOD COUNT 5.8 K/mm3 (4.0-10.0)
[2021-12-17] MEDS: PANTOPRAZOLE 20 MG TABLET PO SCH ×2 (10:46→22:45)
[2021-12-17] MEDS: amLODIPine BESYLATE 10 MG TABLET (FP) PO SCH (10:52)
[2021-12-17] MEDS: cloNIDine HCL 0.1 MG TABLET PO SCH (10:52)
[2021-12-17] MEDS: CARVEDILOL 25 MG TABLET (FP) PO SCH (10:52)
[2021-12-17 11:05] LABS: CALCIUM 7.6 mg/dL (8.5-10.1)
[2021-12-17 11:06] LABS: ALBUMIN 2.5 g/dl (3.4-5.0); BLOOD UREA NITROGEN 35.9 mg/dL (7-18)
[2021-12-17 11:10] LABS: CREATININE 5.9 mg/dL (0.55-1.3)
[2021-12-17 11:11] LABS: BILIRUBIN,TOTAL 0.4 mg/dL (0.2-1); TOT PROT 5.8 g/dl (6.4-8.2)
[2021-12-17] MEDS ORDERED: predniSONE 5 MG TABLET (UD) PO SCH (13:15)
[2021-12-17] MEDS ORDERED: VANCOMYCIN 1 GRAM (PRE-DOCKED) 1,000 MG/250 ML BAG IVPB ONE (13:30)
[2021-12-17] MEDS ORDERED: DEXTROSE 5%-WATER - 50 ML IVPB ONE (13:46)
[2021-12-17] MEDS ORDERED: cefTRIAXone SODIUM 1 GM VIAL ONE (13:46)
[2021-12-17] MEDS: DEXAMETHASONE 4 MG TABLET (FP) PO SCH (14:06)
[2021-12-17] MEDS: TACROLIMUS ANHYDROUS 1 MG CAPSULE PO SCH ×2 (14:06→22:46)
[2021-12-17] MEDS: CEFTRIAXONE 1 GM in DEXTROSE 5%-WATER - 50 ML IVPB SCH (14:07)
[2021-12-17] MEDS: ATORVASTATIN CA 40 MG TABLET (FP) PO SCH (22:45)
[2021-12-18] MEDS: cloNIDine HCL 0.1 MG TABLET PO SCH ×3 (00:10→22:34)
[2021-12-18] MEDS: hydrALAZINE HCL 25 MG TABLET (FP) PO SCH ×4 (00:10→22:34)
[2021-12-18] MEDS: CARVEDILOL 25 MG TABLET (FP) PO SCH ×3 (00:10→22:34)
[2021-12-18] MEDS: INSULIN SLIDING SCALE (NOVOLOG) 1 VIAL SQ SCH ×4 (06:42→22:33)
[2021-12-18] MEDS: HEPARIN NA (PORCINE) 5,000 UNITS/ML 1ML VIAL SQ SCH ×3 (06:43→22:34)
[2021-12-18] MEDS ORDERED: DEXTROSE 5%-WATER - 50 ML IVPB ONE (09:32)
[2021-12-18] MEDS ORDERED: cefTRIAXone SODIUM 1 GM VIAL ONE (09:32)
[2021-12-18] MEDS: CEFTRIAXONE 1 GM in DEXTROSE 5%-WATER - 50 ML IVPB SCH (10:05)
[2021-12-18] MEDS: TACROLIMUS ANHYDROUS 1 MG CAPSULE PO SCH ×2 (10:05→22:34)
[2021-12-18] MEDS: DEXAMETHASONE 4 MG TABLET (FP) PO SCH (10:05)
[2021-12-18] MEDS: PANTOPRAZOLE 20 MG TABLET PO SCH ×2 (10:06→22:34)
[2021-12-18] MEDS: amLODIPine BESYLATE 10 MG TABLET (FP) PO SCH (10:49)
[2021-12-18] MEDS ORDERED: SODIUM CHLORIDE 250 ML IV PRN (12:26)
[2021-12-18] MEDS ORDERED: EPOETIN ALFA-EPBX 10,000 UNIT/ML VIAL SQ ONE (12:30)
[2021-12-18] MEDS ORDERED: HEPARIN NA (PORCINE) 5,000 UNITS/ML 1ML VIAL IVPUSH ONE (12:30)
[2021-12-18 12:53] LABS: HEMOGLOBIN 9.6 GM/dL (11.7-16.9); MCH 27.4 pg (25.7-33.7); MEAN CELL VOLUME 85.6 fl (80-96); MEAN PLT VOLUME 8.3 fl (7.5-11.1); PLATELET COUNT 230 10^3/uL (134-434); RDW 14.4 % (11.9-15.9); WHITE BLOOD COUNT 4.3 K/mm3 (4.0-10.0)
[2021-12-18 13:13] LABS: CALCIUM 8.3 mg/dL (8.5-10.1)
[2021-12-18 13:17] LABS: CREATININE 6.6 mg/dL (0.55-1.3)
[2021-12-18 13:52] LABS: BLOOD UREA NITROGEN 65.2 mg/dL (7-18)
[2021-12-18] MEDS ORDERED: REMDESIVIR 100 MG in SODIUM CHLORIDE 250 ML IVPB SCH (14:00)
[2021-12-18] MEDS ORDERED: VANCOMYCIN 1 GM in D5W (PRE-DOCKED) 1,000 MG/250 ML IVPB ONE (17:35)
[2021-12-18] MEDS: ATORVASTATIN CA 40 MG TABLET (FP) PO SCH (22:34)
[2021-12-19] MEDS: INSULIN SLIDING SCALE (NOVOLOG) 1 VIAL SQ SCH ×4 (06:50→22:24)
[2021-12-19] MEDS: hydrALAZINE HCL 25 MG TABLET (FP) PO SCH ×3 (06:51→22:24)
[2021-12-19] MEDS: HEPARIN NA (PORCINE) 5,000 UNITS/ML 1ML VIAL SQ SCH ×3 (06:51→22:23)
[2021-12-19 09:16] LABS: BASO % 0.2 % (0-2.0); HEMATOCRIT 30.2 % (35.4-49); HEMOGLOBIN 9.5 GM/dL (11.7-16.9); LYMPH % 19.8 % (8-40); MCH 27.5 pg (25.7-33.7); MCHC 31.5 g/dl (32.0-35.9); MEAN CELL VOLUME 87.1 fl (80-96); MEAN PLT VOLUME 8.9 fl (7.5-11.1); MONO % 9.3 % (3.8-10.2); NEUT % 70.7 % (42.8-82.8); PLATELET COUNT 237 10^3/uL (134-434); RBC 3.47 M/mm3 (4.00-5.60); RDW 14.6 % (11.9-15.9); WHITE BLOOD COUNT 4.5 K/mm3 (4.0-10.0)
[2021-12-19] MEDS ORDERED: DEXTROSE 5%-WATER - 50 ML IVPB ONE (09:44)
[2021-12-19] MEDS ORDERED: cefTRIAXone SODIUM 1 GM VIAL ONE (09:44)
[2021-12-19 09:54] LABS: BLOOD UREA NITROGEN 58.3 mg/dL (7-18)
[2021-12-19 09:55] LABS: CALCIUM 8.3 mg/dL (8.5-10.1); MAGNESIUM 2.2 mg/dL (1.8-2.4)
[2021-12-19] MEDS: CEFTRIAXONE 1 GM in DEXTROSE 5%-WATER - 50 ML IVPB SCH (09:56)
[2021-12-19 09:57] LABS: PHOSPHOROUS 5.6 mg/dL (2.5-4.9)
[2021-12-19] MEDS: cloNIDine HCL 0.1 MG TABLET PO SCH ×2 (09:57→22:24)
[2021-12-19] MEDS: DEXAMETHASONE 4 MG TABLET (FP) PO SCH (09:58)
[2021-12-19] MEDS: CARVEDILOL 25 MG TABLET (FP) PO SCH ×2 (09:58→22:24)
[2021-12-19] MEDS: TACROLIMUS ANHYDROUS 1 MG CAPSULE PO SCH ×2 (09:58→22:23)
[2021-12-19] MEDS: PANTOPRAZOLE 20 MG TABLET PO SCH ×2 (09:58→22:23)
[2021-12-19] MEDS: amLODIPine BESYLATE 10 MG TABLET (FP) PO SCH (09:58)
[2021-12-19] MEDS: REMDESIVIR 100 MG in SODIUM CHLORIDE 250 ML IVPB SCH (14:27)
[2021-12-19] MEDS: ATORVASTATIN CA 40 MG TABLET (FP) PO SCH (22:23)
[2021-12-20] MEDS: HEPARIN NA (PORCINE) 5,000 UNITS/ML 1ML VIAL SQ SCH ×3 (06:02→21:38)
[2021-12-20] MEDS: INSULIN SLIDING SCALE (NOVOLOG) 1 VIAL SQ SCH ×4 (06:02→21:44)
[2021-12-20] MEDS: hydrALAZINE HCL 25 MG TABLET (FP) PO SCH ×3 (06:02→21:37)
[2021-12-20 09:07] LABS: HEMATOCRIT 30.8 % (35.4-49); HEMOGLOBIN 9.8 GM/dL (11.7-16.9); MCH 27.5 pg (25.7-33.7); MCHC 31.6 g/dl (32.0-35.9); MEAN CELL VOLUME 86.9 fl (80-96); MEAN PLT VOLUME 8.7 fl (7.5-11.1); PLATELET COUNT 253 10^3/uL (134-434); RBC 3.55 M/mm3 (4.00-5.60); RDW 14.1 % (11.9-15.9)
[2021-12-20 09:41] LABS: CHLORIDE 97 mmol/L (98-107); SODIUM 137 mmol/L (136-145)
[2021-12-20] MEDS ORDERED: cefTRIAXone SODIUM 1 GM VIAL ONE (09:43)
[2021-12-20] MEDS ORDERED: DEXTROSE 5%-WATER - 50 ML IVPB ONE (09:43)
[2021-12-20 09:46] LABS: GLUCOSE,RANDOM 142 mg/dL (74-106)
[2021-12-20 09:48] LABS: ALBUMIN 2.7 g/dl (3.4-5.0)
[2021-12-20 09:49] LABS: ANION GAP 15 MMOL/L (8-16); CALCIUM 8.2 mg/dL (8.5-10.1); CO2 25 mmol/L (21-32)
[2021-12-20] MEDS: CARVEDILOL 25 MG TABLET (FP) PO SCH ×2 (09:49→21:38)
[2021-12-20] MEDS: amLODIPine BESYLATE 10 MG TABLET (FP) PO SCH (09:49)
[2021-12-20] MEDS: TACROLIMUS ANHYDROUS 1 MG CAPSULE PO SCH ×2 (09:49→21:38)
[2021-12-20] MEDS: DEXAMETHASONE 4 MG TABLET (FP) PO SCH (09:49)
[2021-12-20] MEDS: cloNIDine HCL 0.1 MG TABLET PO SCH (09:49)
[2021-12-20] MEDS: PANTOPRAZOLE 20 MG TABLET PO SCH ×2 (09:49→21:38)
[2021-12-20 09:50] LABS: MAGNESIUM 2.4 mg/dL (1.8-2.4)
[2021-12-20] MEDS: CEFTRIAXONE 1 GM in DEXTROSE 5%-WATER - 50 ML IVPB SCH (09:50)
[2021-12-20 09:51] LABS: SGPT/ALT 34 U/L (13-61)
[2021-12-20 09:53] LABS: PHOSPHOROUS 5.8 mg/dL (2.5-4.9); SGOT/AST 50 U/L (15-37); TOT PROT 6.4 g/dl (6.4-8.2)
[2021-12-20 09:54] LABS: BILIRUBIN,DIRECT 0.2 mg/dL (0.0-0.2)
[2021-12-20 09:55] LABS: BILIRUBIN,TOTAL 0.3 mg/dL (0.2-1)
[2021-12-20 09:56] LABS: ALK PHOS 117 U/L (45-117); BLOOD UREA NITROGEN 93.4 mg/dL (7-18)
[2021-12-20 09:57] LABS: CREATININE 7.7 mg/dL (0.55-1.3)
[2021-12-20 10:39] LABS: ANISOCYTOSIS 0; HELMET CELLS 0; HOWELL-JOLLY BODIES 0; MACROCYTOSIS 0; OVALOCYTE 0; PLATELET ESTIMATE NORMAL; ROULEAU 0; SICKELED CELLS 0; TARGET CELLS 0; TEAR DROP CELLS 0; TOXIC GRANULATION 0
[2021-12-20] MEDS: REMDESIVIR 100 MG in SODIUM CHLORIDE 250 ML IVPB SCH (13:44)
[2021-12-20] MEDS: ATORVASTATIN CA 40 MG TABLET (FP) PO SCH (21:38)
[2021-12-21] MEDS: hydrALAZINE HCL 25 MG TABLET (FP) PO SCH ×3 (05:24→17:29)
[2021-12-21] MEDS: HEPARIN NA (PORCINE) 5,000 UNITS/ML 1ML VIAL SQ SCH ×2 (06:52→13:48)
[2021-12-21] MEDS: INSULIN SLIDING SCALE (NOVOLOG) 1 VIAL SQ SCH ×3 (06:53→17:33)
[2021-12-21 07:05] VITALS: TEMP 97.8
[2021-12-21 10:00] LABS: BASO % 0.1 % (0-2.0); HEMATOCRIT 28.6 % (35.4-49); HEMOGLOBIN 9.4 GM/dL (11.7-16.9); LYMPH % 18.9 % (8-40); MEAN CELL VOLUME 84.9 fl (80-96); MEAN PLT VOLUME 8.6 fl (7.5-11.1); MONO % 8.2 % (3.8-10.2); NEUT % 72.8 % (42.8-82.8); PLATELET COUNT 258 10^3/uL (134-434); RBC 3.37 M/mm3 (4.00-5.60); RDW 14.6 % (11.9-15.9); WHITE BLOOD COUNT 4.9 K/mm3 (4.0-10.0)
[2021-12-21] MEDS ORDERED: DEXTROSE 5%-WATER - 50 ML IVPB ONE (10:12)
[2021-12-21] MEDS ORDERED: cefTRIAXone SODIUM 1 GM VIAL ONE (10:12)
[2021-12-21 10:19] LABS: SODIUM 134 mmol/L (136-145)
[2021-12-21] MEDS: CEFTRIAXONE 1 GM in DEXTROSE 5%-WATER - 50 ML IVPB SCH (10:19)
[2021-12-21] MEDS: PANTOPRAZOLE 20 MG TABLET PO SCH (10:20)
[2021-12-21] MEDS: TACROLIMUS ANHYDROUS 1 MG CAPSULE PO SCH (10:20)
[2021-12-21] MEDS: DEXAMETHASONE 4 MG TABLET (FP) PO SCH (10:20)
[2021-12-21] MEDS: CARVEDILOL 25 MG TABLET (FP) PO SCH ×2 (10:21→10:28)
[2021-12-21] MEDS: amLODIPine BESYLATE 10 MG TABLET (FP) PO SCH ×2 (10:21→17:29)
[2021-12-21 10:23] LABS: ALBUMIN 2.8 g/dl (3.4-5.0); CALCIUM 8.2 mg/dL (8.5-10.1); CO2 23 mmol/L (21-32); GLUCOSE,RANDOM 205 mg/dL (74-106)
[2021-12-21 10:26] LABS: SGOT/AST 48 U/L (15-37); SGPT/ALT 37 U/L (13-61)
[2021-12-21 10:28] LABS: BILIRUBIN,TOTAL 0.6 mg/dL (0.2-1); TOT PROT 6.1 g/dl (6.4-8.2)
[2021-12-21 10:29] LABS: ALK PHOS 118 U/L (45-117)
[2021-12-21 10:36] LABS: ANION GAP 15 MMOL/L (8-16); BLOOD UREA NITROGEN 128.8 mg/dL (7-18); CHLORIDE 96 mmol/L (98-107); CREATININE 9.1 mg/dL (0.55-1.3)
[2021-12-21] MEDS: REMDESIVIR 100 MG in SODIUM CHLORIDE 250 ML IVPB SCH (15:44)
[2021-12-21 17:07] VITALS: BP 160/93; PULSE 72
== END 2021-12-21 18:39 | disposition home or self-care (01) | DRG 177 ==
LOC: JER 12:29 → INTOOBSV 15:35 → UNDOADMOB 15:35 → JERBED 15:35 → UNDOADMIN 17:55 → UNDOADMOB 12-15 12:23 → JERBED 12-15 12:23 → J5S 12-16 04:19
PROVIDERS: ADMIT Internal Medicine
PROC: 5A1D70Z Performance of Urinary Filtration, Intermittent, Less than 6 Hours Per Day (ICD-10-PCS; 2021-12-14)
PROC: XW033E5 Introduction of Remdesivir Anti-infective into Peripheral Vein, Percutaneous Approach, New Technology Group 5 (ICD-10-PCS; principal; 2021-12-16)
DX: U07.1 COVID-19 (principal); N18.6 End stage renal disease; J12.82 Pneumonia due to coronavirus disease 2019; J96.01 Acute respiratory failure with hypoxia; T86.12 Kidney transplant failure; I12.0 Hypertensive chronic kidney disease with stage 5 chronic kidney disease or end stage renal disease; E87.5 Hyperkalemia; Y83.0 Surgical operation with transplant of whole organ as the cause of abnormal reaction of the patient, or of later complication, without mention of misadventure at the time of the procedure; Z99.2 Dependence on renal dialysis; M10.9 Gout, unspecified; R50.9 Fever, unspecified; E11.22 Type 2 diabetes mellitus with diabetic chronic kidney disease; D64.9 Anemia, unspecified
CPT/HCPCS: 36415; 71045-TC-FY; 71046-TC-FY; 80048; 80053; 80076; 81003; 82248; 82550; 82728; 82962; 83605; 83615; 83735; 84100; 84484; 85025; 85027; 85379; 85610; 85651; 85730; 86140; 86803; 87040; 87070; 87086; 87205; 87340; 87804; 87899; 93005; 93010; 94761; 99285-25; C9399; C9803; G0480; J0131; J0735; J1644; Q5106; U0003; U0005

== ENCOUNTER 2022-10-18 17:10 | Observation (INO) | payer OTHER ==
[2022-10-18 18:20] VITALS: BMI 23.3
[2022-10-18 23:54] LABS: BASO % 0.6 % (0-2.0); EOS % 4.5 % (0-4.5); LYMPH % 59.5 % (8-40); MCH 32.3 pg (25.7-33.7); MCHC 31.5 g/dl (32.0-35.9); MEAN CELL VOLUME 102.5 fl (80-96); MONO % 18.8 % (3.8-10.2); NEUT % 16.6 % (42.8-82.8); PLATELET COUNT 187 10^3/uL (134-434); RBC 1.76 M/mm3 (4.00-5.60); RDW 20.6 % (11.9-15.9); WHITE BLOOD COUNT 3.1 K/mm3 (4.0-10.0)
[2022-10-18 23:56] LABS: HEMOGLOBIN 5.7 GM/dL (11.7-16.9)
[2022-10-19 00:12] LABS: CALCIUM 8.4 mg/dL (8.5-10.1)
[2022-10-19 00:14] LABS: ALBUMIN 3.8 g/dl (3.4-5.0); BLOOD UREA NITROGEN 26.8 mg/dL (7-18)
[2022-10-19 00:17] LABS: BILIRUBIN,TOTAL 0.5 mg/dL (0.2-1); TOT PROT 6.8 g/dl (6.4-8.2)
[2022-10-19] MEDS ORDERED: TACROLIMUS ANHYDROUS 1 MG CAPSULE PO ONE (02:37)
[2022-10-19] MEDS ORDERED: hydrALAZINE HCL 50 MG TABLET (FP) ONE ×2 (03:01→11:20)
[2022-10-19] MEDS: hydrALAZINE HCL 50 MG TABLET (FP) PO SCH ×3 (03:07→17:45)
[2022-10-19 04:30] LABS: URINE APPEARANCE CLEAR; URINE BILIRUBIN NEGATIVE (NEGATIVE); URINE COLOR YELLOW; URINE GLUCOSE (UA) NEGATIVE (NEGATIVE); URINE KETONE NEGATIVE (NEGATIVE); URINE LEUK ESTERASE NEGATIVE (NEGATIVE); URINE NITRITE NEGATIVE (NEGATIVE); URINE PROTEIN 4+ (NEGATIVE); URINE UROBILINOGEN 0.2 mg/dL (0.2-1.0)
[2022-10-19 04:36] LABS: EPI CELLS 22.8 /uL (0-25.1); HYALINE CASTS 1.63 /uL (0-3.1); URINE BACTERIA 64.9 /uL (0-1359); URINE WBC 2.7 /uL (0-25.8)
[2022-10-19 04:38] LABS: HEMATOCRIT 16.8 % (35.4-49); MCH 32.1 pg (25.7-33.7); MCHC 31.3 g/dl (32.0-35.9); MEAN CELL VOLUME 102.5 fl (80-96); MEAN PLT VOLUME 7.6 fl (7.5-11.1); PLATELET COUNT 155 10^3/uL (134-434); RBC 1.64 M/mm3 (4.00-5.60); RETICULOCYTES 2.21 % (0.5-1.5); WHITE BLOOD COUNT 3.2 K/mm3 (4.0-10.0)
[2022-10-19 04:48] LABS: HEMOGLOBIN 5.3 GM/dL (11.7-16.9)
[2022-10-19 05:04] LABS: ANISOCYTOSIS 2+; MACROCYTOSIS 1+; OVALOCYTE 2+; TEAR DROP CELLS 2+; TOXIC GRANULATION 2+
[2022-10-19] MEDS ORDERED: cloNIDine HCL 0.1 MG TABLET PO SCH (06:00)
[2022-10-19] MEDS ORDERED: HEPARIN NA (PORCINE) 5,000 UNITS/ML 1ML VIAL SQ SCH (06:00)
[2022-10-19] MEDS ORDERED: cloNIDine HCL 0.1 MG TABLET ONE ×2 (06:28→11:19)
[2022-10-19 09:04] LABS: ANISOCYTOSIS 2+; MACROCYTOSIS 2+; TEAR DROP CELLS 0
[2022-10-19] MEDS ORDERED: CARVEDILOL 25 MG TABLET (FP) PO SCH (10:00)
[2022-10-19] MEDS ORDERED: SPIRONOLACTONE 25 MG TABLET ONE (11:19)
[2022-10-19] MEDS ORDERED: CARVEDILOL 25 MG TABLET (FP) ONE ×2 (11:19→11:20)
[2022-10-19] MEDS: TACROLIMUS ANHYDROUS 1 MG CAPSULE PO SCH ×2 (11:45→21:50)
[2022-10-19] MEDS: SPIRONOLACTONE 25 MG TABLET PO SCH (11:45)
[2022-10-19] MEDS: TORSEMIDE 20 MG TABLET (FP) PO SCH ×2 (11:45→21:52)
[2022-10-19] MEDS ORDERED: SODIUM CHLORIDE 250 ML IV PRN (13:10)
[2022-10-19 13:27] LABS: HEMATOCRIT 20.4 % (35.4-49); MCH 32.4 pg (25.7-33.7); MCHC 32.2 g/dl (32.0-35.9); MEAN CELL VOLUME 100.7 fl (80-96); MEAN PLT VOLUME 6.9 fl (7.5-11.1); PLATELET COUNT 140 10^3/uL (134-434); RBC 2.02 M/mm3 (4.00-5.60); RDW 19.4 % (11.9-15.9); WHITE BLOOD COUNT 3.1 K/mm3 (4.0-10.0)
[2022-10-19 13:37] LABS: HEMOGLOBIN 6.6 GM/dL (11.7-16.9)
[2022-10-19 13:50] LABS: CALCIUM 8.7 mg/dL (8.5-10.1)
[2022-10-19 13:51] LABS: ALBUMIN 3.7 g/dl (3.4-5.0); MAGNESIUM 2.5 mg/dL (1.8-2.4)
[2022-10-19 13:55] LABS: PHOSPHOROUS 3.9 mg/dL (2.5-4.9)
[2022-10-19 13:57] LABS: TOT PROT 6.4 g/dl (6.4-8.2)
[2022-10-19 21:14] LABS: HEMATOCRIT 22.5 % (35.4-49); HEMOGLOBIN 7.3 GM/dL (11.7-16.9); MCH 31.7 pg (25.7-33.7); MCHC 32.2 g/dl (32.0-35.9); MEAN CELL VOLUME 98.5 fl (80-96); MEAN PLT VOLUME 7.1 fl (7.5-11.1); PLATELET COUNT 140 10^3/uL (134-434); RBC 2.29 M/mm3 (4.00-5.60); WHITE BLOOD COUNT 3.1 K/mm3 (4.0-10.0)
[2022-10-19] MEDS: CARVEDILOL 25 MG TABLET (FP) PO SCH (21:49)
[2022-10-19] MEDS ORDERED: ATORVASTATIN CA 20 MG TABLET (FP) PO SCH (22:00)
[2022-10-20 02:46] VITALS: RESP 18
[2022-10-20] MEDS ORDERED: EPOETIN ALFA-EPBX 10,000 UNIT/ML VIAL IVPUSH ONE (08:00)
[2022-10-20] MEDS: TORSEMIDE 20 MG TABLET (FP) PO SCH ×2 (08:30→13:32)
[2022-10-20] MEDS: hydrALAZINE HCL 50 MG TABLET (FP) PO SCH ×2 (08:30→13:31)
[2022-10-20 10:50] LABS: HEMATOCRIT 22.2 % (35.4-49); HEMOGLOBIN 7.4 GM/dL (11.7-16.9); MCH 32.5 pg (25.7-33.7); MCHC 33.1 g/dl (32.0-35.9); MEAN CELL VOLUME 98.1 fl (80-96); MEAN PLT VOLUME 7.3 fl (7.5-11.1); PLATELET COUNT 145 10^3/uL (134-434); RBC 2.26 M/mm3 (4.00-5.60); RDW 20.2 % (11.9-15.9); WHITE BLOOD COUNT 2.8 K/mm3 (4.0-10.0)
[2022-10-20 11:13] LABS: CHLORIDE 105 mmol/L (98-107); SODIUM 141 mmol/L (136-145)
[2022-10-20 11:16] LABS: MAGNESIUM 2.4 mg/dL (1.8-2.4)
[2022-10-20 11:19] LABS: PHOSPHOROUS 4.4 mg/dL (2.5-4.9)
[2022-10-20 11:49] LABS: ALBUMIN 3.4 g/dl (3.4-5.0); CALCIUM 8.6 mg/dL (8.5-10.1)
[2022-10-20 11:50] LABS: ANION GAP 10 MMOL/L (8-16); BLOOD UREA NITROGEN 53.5 mg/dL (7-18); CO2 26 mmol/L (21-32); GLUCOSE,RANDOM 128 mg/dL (74-106)
[2022-10-20 11:52] LABS: SGPT/ALT 13 U/L (13-61)
[2022-10-20 11:53] LABS: SGOT/AST 3 U/L (15-37)
[2022-10-20 11:55] LABS: ALK PHOS 158 U/L (45-117)
[2022-10-20 11:58] LABS: BILIRUBIN,TOTAL 0.6 mg/dL (0.2-1); TOT PROT 5.9 g/dl (6.4-8.2)
[2022-10-20 12:18] LABS: CREATININE 7.8 mg/dL (0.55-1.3)
[2022-10-20] MEDS: SPIRONOLACTONE 25 MG TABLET PO SCH (13:30)
[2022-10-20 13:31] VITALS: BP 150/83; PULSE 77; TEMP 98.6
[2022-10-20] MEDS: CARVEDILOL 25 MG TABLET (FP) PO SCH (13:31)
[2022-10-20] MEDS: TACROLIMUS ANHYDROUS 1 MG CAPSULE PO SCH (13:33)
== END 2022-10-20 15:36 | disposition home or self-care (01) ==
LOC: JER 17:10 → JERBED 10-19 01:48 → INTOOBSV 10-19 01:48 → UNDOADMOB 10-19 01:48 → JERBED 10-19 03:25 → J5S 10-19 11:59
PROVIDERS: ADMIT Internal Medicine; ATTEND Internal Medicine
PROC: 3E023GC Introduction of Other Therapeutic Substance into Muscle, Percutaneous Approach (ICD-10-PCS; principal; 2022-10-19)
PROC: 3E033GC Introduction of Other Therapeutic Substance into Peripheral Vein, Percutaneous Approach (ICD-10-PCS; 2022-10-19)
DX: I12.0 Hypertensive chronic kidney disease with stage 5 chronic kidney disease or end stage renal disease (principal); N18.6 End stage renal disease; D63.1 Anemia in chronic kidney disease; T86.11 Kidney transplant rejection; M10.9 Gout, unspecified; Z86.16 Personal history of COVID-19; Z99.2 Dependence on renal dialysis; Y82.8 Other medical devices associated with adverse incidents
CPT/HCPCS: 0241U-QW; 36415; 36430; 80053; 81003; 82272; 82607; 82728; 82746; 82962; 83010; 83540; 83550; 83735; 84100; 84466; 85025; 85027; 85045; 86803; 86850; 86900; 86901; 86922; 87340; 93005; 93010; 96372; 96374; 99285-25; G0378; J1644; P9058; Q5106

== ENCOUNTER 2023-05-04 15:52 | Inpatient (IN) | payer OTHER ==
[2023-05-04] MEDS ORDERED: ACETAMINOPHEN 1000 MG/100 ML BAG IVPB ONE (16:55)
[2023-05-04] MEDS ORDERED: ACETAMINOPHEN INJECTION 100 ML IVPB ONE (17:00)
[2023-05-04 18:04] LABS: CHLORIDE 99 mmol/L (98-107); SODIUM 133 mmol/L (136-145)
[2023-05-04 18:08] LABS: ALBUMIN 3.8 g/dl (3.4-5.0); BLOOD UREA NITROGEN 28.8 mg/dL (7-18); CALCIUM 8.4 mg/dL (8.5-10.1); CO2 31 mmol/L (21-32); GLUCOSE,RANDOM 102 mg/dL (74-106); MAGNESIUM 2.2 mg/dL (1.8-2.4)
[2023-05-04 18:11] LABS: CREATININE 5.5 mg/dL (0.55-1.3)
[2023-05-04 18:12] LABS: BILIRUBIN,TOTAL 0.4 mg/dL (0.2-1); TOT PROT 7.5 g/dl (6.4-8.2)
[2023-05-04 18:14] LABS: ALK PHOS 159 U/L (45-117)
[2023-05-04 18:17] LABS: SGPT/ALT 19 U/L (13-61)
[2023-05-04 18:42] LABS: HEMATOCRIT 28.1 % (35.4-49); HEMOGLOBIN 7.7 GM/dL (11.7-16.9); MCH 25.4 pg (25.7-33.7); MCHC 27.3 g/dl (32.0-35.9); MEAN CELL VOLUME 93.3 fl (80-96); MEAN PLT VOLUME 8.1 fl (7.5-11.1); PLATELET COUNT 122 10^3/uL (134-434); RBC 3.01 M/mm3 (4.00-5.60); RDW 28.2 % (11.9-15.9); WHITE BLOOD COUNT 2.4 K/mm3 (4.0-10.0)
[2023-05-04 18:44] LABS: ADD RBC MORPHOLOGY YES
[2023-05-04 19:41] LABS: ANION GAP 4 MMOL/L (8-16); POTASSIUM > 10.0 mmol/L (3.5-5.1); SGOT/AST 54 U/L (15-37)
[2023-05-04 19:52] LABS: ANISOCYTOSIS 2+; MACROCYTOSIS 0; PLATELET ESTIMATE DECREASED; TEAR DROP CELLS 1+
[2023-05-04] MEDS ORDERED: ACETAMINOPHEN 325 MG TABLET (FP) ONE (21:46)
[2023-05-04] MEDS: ACETAMINOPHEN 325 MG TABLET (FP) PO PRN (21:46)
[2023-05-04] MEDS: TACROLIMUS ANHYDROUS 1 MG CAPSULE PO SCH (22:40)
[2023-05-05 00:07] LABS: POTASSIUM 4.4 mmol/L (3.5-5.1)
[2023-05-05 00:08] LABS: CALCIUM 8.6 mg/dL (8.5-10.1)
[2023-05-05 00:09] LABS: BLOOD UREA NITROGEN 33.2 mg/dL (7-18)
[2023-05-05 00:11] LABS: CREATININE 6.3 mg/dL (0.55-1.3)
[2023-05-05] MEDS: ACETAMINOPHEN 325 MG TABLET (FP) PO PRN ×3 (05:26→21:31)
[2023-05-05 10:28] LABS: CHLORIDE 100 mmol/L (98-107); POTASSIUM 4.9 mmol/L (3.5-5.1); SODIUM 140 mmol/L (136-145)
[2023-05-05 10:36] LABS: ANION GAP 9 MMOL/L (8-16); CALCIUM 8.6 mg/dL (8.5-10.1); CO2 30 mmol/L (21-32); GLUCOSE,RANDOM 111 mg/dL (74-106)
[2023-05-05 10:37] LABS: BLOOD UREA NITROGEN 42.2 mg/dL (7-18)
[2023-05-05 10:40] LABS: CREATININE 7.6 mg/dL (0.55-1.3)
[2023-05-05 10:46] LABS: HEMATOCRIT 24.2 % (35.4-49); HEMOGLOBIN 7.4 GM/dL (11.7-16.9); MCH 26.2 pg (25.7-33.7); MCHC 30.7 g/dl (32.0-35.9); MEAN CELL VOLUME 85.4 fl (80-96); MEAN PLT VOLUME 6.9 fl (7.5-11.1); PLATELET COUNT 103 10^3/uL (134-434); RBC 2.84 M/mm3 (4.00-5.60); RDW 24.4 % (11.9-15.9)
[2023-05-05] MEDS: INSULIN SLIDING SCALE (NOVOLOG) 1 VIAL SQ SCH ×3 (12:08→21:32)
[2023-05-05 13:09] LABS: ANISOCYTOSIS 2+; MACROCYTOSIS 0; OVALOCYTE 2+; TEAR DROP CELLS 1+
[2023-05-05] MEDS: hydrALAZINE HCL 50 MG TABLET (FP) PO SCH ×2 (13:13→21:31)
[2023-05-05] MEDS: TACROLIMUS ANHYDROUS 1 MG CAPSULE PO SCH ×2 (13:13→21:31)
[2023-05-05] MEDS ORDERED: REMDESIVIR 200 MG in SODIUM CHLORIDE 250 ML IVPB ONE (15:00)
[2023-05-05 21:06] VITALS: BMI 25.1
[2023-05-05] MEDS ORDERED: SODIUM CHLORIDE 250 ML IV PRN (21:07)
[2023-05-05] MEDS: CARVEDILOL 25 MG TABLET (FP) PO SCH (21:31)
[2023-05-05] MEDS: PANTOPRAZOLE 20 MG TABLET PO SCH (21:31)
[2023-05-05] MEDS: cloNIDine HCL 0.1 MG TABLET PO SCH (21:32)
[2023-05-06] MEDS: hydrALAZINE HCL 50 MG TABLET (FP) PO SCH ×3 (05:46→21:12)
[2023-05-06] MEDS: glipiZIDE-XL 2.5 MG TAB.ER.24 PO SCH (06:00)
[2023-05-06] MEDS: INSULIN SLIDING SCALE (NOVOLOG) 1 VIAL SQ SCH ×4 (06:01→21:05)
[2023-05-06 09:08] LABS: HEMATOCRIT 22.8 % (35.4-49); HEMOGLOBIN 7.1 GM/dL (11.7-16.9); MCH 26.1 pg (25.7-33.7); MCHC 31.1 g/dl (32.0-35.9); MEAN PLT VOLUME 7.6 fl (7.5-11.1); PLATELET COUNT 97 10^3/uL (134-434); RBC 2.71 M/mm3 (4.00-5.60); RDW 24.5 % (11.9-15.9); WHITE BLOOD COUNT 3.3 K/mm3 (4.0-10.0)
[2023-05-06 09:29] LABS: CHLORIDE 99 mmol/L (98-107); POTASSIUM 5.6 mmol/L (3.5-5.1); SODIUM 138 mmol/L (136-145)
[2023-05-06] MEDS: cloNIDine HCL 0.1 MG TABLET PO SCH ×2 (09:29→21:12)
[2023-05-06] MEDS: SPIRONOLACTONE 25 MG TABLET PO SCH (09:30)
[2023-05-06] MEDS: CARVEDILOL 25 MG TABLET (FP) PO SCH ×2 (09:30→21:12)
[2023-05-06] MEDS: TORSEMIDE 100 MG TABLET PO SCH (09:30)
[2023-05-06] MEDS: amLODIPine BESYLATE 10 MG TABLET (FP) PO SCH (09:30)
[2023-05-06] MEDS: PANTOPRAZOLE 20 MG TABLET PO SCH ×2 (09:31→21:12)
[2023-05-06] MEDS: TACROLIMUS ANHYDROUS 1 MG CAPSULE PO SCH ×2 (09:31→21:12)
[2023-05-06 09:33] LABS: CALCIUM 8.5 mg/dL (8.5-10.1)
[2023-05-06 09:34] LABS: ALBUMIN 3.2 g/dl (3.4-5.0); ANION GAP 11 MMOL/L (8-16); BLOOD UREA NITROGEN 66.8 mg/dL (7-18); CO2 28 mmol/L (21-32); GLUCOSE,RANDOM 84 mg/dL (74-106)
[2023-05-06 09:37] LABS: SGOT/AST 9 U/L (15-37); SGPT/ALT 16 U/L (13-61)
[2023-05-06 09:39] LABS: TOT PROT 6.2 g/dl (6.4-8.2)
[2023-05-06 09:40] LABS: ALK PHOS 141 U/L (45-117)
[2023-05-06 09:44] LABS: BILIRUBIN,TOTAL 0.5 mg/dL (0.2-1); CREATININE 10.1 mg/dL (0.55-1.3)
[2023-05-06] MEDS: ACETAMINOPHEN 325 MG TABLET (FP) PO PRN ×2 (10:14→17:01)
[2023-05-06] MEDS: MOMETASONE FUROATE 220 MCG/IH INHALER IH SCH ×2 (16:36→21:14)
[2023-05-06 16:41] LABS: IRON SERUM 10 ug/dL (50-175)
[2023-05-06] MEDS: DEXAMETHASONE SOD PHOSPHATE 10 MG/1 ML VIAL IVPUSH SCH (17:02)
[2023-05-06] MEDS: REMDESIVIR 100 MG in SODIUM CHLORIDE 250 ML IVPB SCH (17:29)
[2023-05-06] MEDS ORDERED: EPOETIN ALFA-EPBX 10,000 UNIT/ML VIAL SQ ONE (21:07)
[2023-05-06] MEDS: ATORVASTATIN CA 10 MG TABLET (FP) PO SCH (21:12)
[2023-05-07] MEDS: hydrALAZINE HCL 50 MG TABLET (FP) PO SCH ×3 (06:03→21:18)
[2023-05-07] MEDS: glipiZIDE-XL 2.5 MG TAB.ER.24 PO SCH (06:06)
[2023-05-07] MEDS: INSULIN SLIDING SCALE (NOVOLOG) 1 VIAL SQ SCH ×4 (06:07→21:17)
[2023-05-07] MEDS: CARVEDILOL 25 MG TABLET (FP) PO SCH ×2 (09:58→21:17)
[2023-05-07] MEDS: cloNIDine HCL 0.1 MG TABLET PO SCH ×2 (09:58→21:18)
[2023-05-07] MEDS: SPIRONOLACTONE 25 MG TABLET PO SCH (09:58)
[2023-05-07] MEDS: predniSONE 5 MG TABLET (UD) PO SCH (09:59)
[2023-05-07] MEDS: DEXAMETHASONE SOD PHOSPHATE 10 MG/1 ML VIAL IVPUSH SCH (09:59)
[2023-05-07] MEDS ORDERED: predniSONE 2.5 MG TABLET PO SCH (10:00)
[2023-05-07] MEDS: PANTOPRAZOLE 20 MG TABLET PO SCH ×2 (10:00→21:18)
[2023-05-07] MEDS: TORSEMIDE 100 MG TABLET PO SCH (10:00)
[2023-05-07] MEDS: TACROLIMUS ANHYDROUS 1 MG CAPSULE PO SCH ×2 (10:00→21:17)
[2023-05-07] MEDS: amLODIPine BESYLATE 10 MG TABLET (FP) PO SCH (10:00)
[2023-05-07 10:19] LABS: POTASSIUM 4.8 mmol/L (3.5-5.1)
[2023-05-07 10:23] LABS: BLOOD UREA NITROGEN 45.7 mg/dL (7-18); CALCIUM 8.4 mg/dL (8.5-10.1)
[2023-05-07 10:26] LABS: CREATININE 6.9 mg/dL (0.55-1.3)
[2023-05-07 10:34] LABS: HEMATOCRIT 23.8 % (35.4-49); HEMOGLOBIN 7.3 GM/dL (11.7-16.9); MCH 26.2 pg (25.7-33.7); MCHC 30.8 g/dl (32.0-35.9); PLATELET COUNT 104 10^3/uL (134-434); RDW 24.2 % (11.9-15.9)
[2023-05-07 10:37] LABS: WHITE BLOOD COUNT 1.7 K/mm3 (4.0-10.0)
[2023-05-07] MEDS: REMDESIVIR 100 MG in SODIUM CHLORIDE 250 ML IVPB SCH (14:00)
[2023-05-07] MEDS: ATORVASTATIN CA 10 MG TABLET (FP) PO SCH (21:17)
[2023-05-07] MEDS: MOMETASONE FUROATE 220 MCG/IH INHALER IH SCH (21:18)
[2023-05-08] MEDS: glipiZIDE-XL 2.5 MG TAB.ER.24 PO SCH (06:08)
[2023-05-08] MEDS: hydrALAZINE HCL 50 MG TABLET (FP) PO SCH ×3 (06:08→21:14)
[2023-05-08] MEDS: INSULIN SLIDING SCALE (NOVOLOG) 1 VIAL SQ SCH ×4 (06:10→21:43)
[2023-05-08] MEDS: SPIRONOLACTONE 25 MG TABLET PO SCH (09:20)
[2023-05-08] MEDS: cloNIDine HCL 0.1 MG TABLET PO SCH ×2 (09:20→21:14)
[2023-05-08] MEDS: TORSEMIDE 100 MG TABLET PO SCH (09:20)
[2023-05-08] MEDS: DEXAMETHASONE SOD PHOSPHATE 10 MG/1 ML VIAL IVPUSH SCH (09:20)
[2023-05-08] MEDS: amLODIPine BESYLATE 10 MG TABLET (FP) PO SCH (09:21)
[2023-05-08] MEDS: CARVEDILOL 25 MG TABLET (FP) PO SCH ×2 (09:21→21:14)
[2023-05-08] MEDS: TACROLIMUS ANHYDROUS 1 MG CAPSULE PO SCH (09:21)
[2023-05-08] MEDS: PANTOPRAZOLE 20 MG TABLET PO SCH ×2 (09:21→21:14)
[2023-05-08 09:44] LABS: HEMATOCRIT 23.9 % (35.4-49); HEMOGLOBIN 7.4 GM/dL (11.7-16.9); MCH 26.1 pg (25.7-33.7); MCHC 30.8 g/dl (32.0-35.9); MEAN CELL VOLUME 84.9 fl (80-96); MEAN PLT VOLUME 8.3 fl (7.5-11.1); PLATELET COUNT 109 10^3/uL (134-434); RBC 2.82 M/mm3 (4.00-5.60); RDW 24.2 % (11.9-15.9)
[2023-05-08 09:47] LABS: WHITE BLOOD COUNT 1.8 K/mm3 (4.0-10.0)
[2023-05-08 10:04] LABS: CHLORIDE 99 mmol/L (98-107); POTASSIUM 5.5 mmol/L (3.5-5.1); SODIUM 139 mmol/L (136-145)
[2023-05-08 10:07] LABS: CALCIUM 8.6 mg/dL (8.5-10.1)
[2023-05-08 10:08] LABS: ALBUMIN 3.2 g/dl (3.4-5.0); ANION GAP 14 MMOL/L (8-16); CO2 25 mmol/L (21-32); GLUCOSE,RANDOM 120 mg/dL (74-106)
[2023-05-08 10:10] LABS: SGPT/ALT 17 U/L (13-61)
[2023-05-08 10:11] LABS: SGOT/AST 10 U/L (15-37)
[2023-05-08 10:14] LABS: BILIRUBIN,TOTAL 0.4 mg/dL (0.2-1); TOT PROT 6.4 g/dl (6.4-8.2)
[2023-05-08 10:15] LABS: ALK PHOS 131 U/L (45-117)
[2023-05-08 10:36] LABS: BLOOD UREA NITROGEN 82.9 mg/dL (7-18); CREATININE 9.3 mg/dL (0.55-1.3)
[2023-05-08 10:55] LABS: ANISOCYTOSIS 2+; MACROCYTOSIS 0
[2023-05-08] MEDS: SODIUM ZIRCONIUM CYCLOSILICATE (LOKELMA) 5 GM PACKET PO SCH ×2 (12:09→23:36)
[2023-05-08] MEDS: REMDESIVIR 100 MG in SODIUM CHLORIDE 250 ML IVPB SCH (14:30)
[2023-05-08] MEDS: ATORVASTATIN CA 10 MG TABLET (FP) PO SCH (21:14)
[2023-05-08] MEDS: MOMETASONE FUROATE 220 MCG/IH INHALER IH SCH (21:18)
[2023-05-09] MEDS: hydrALAZINE HCL 50 MG TABLET (FP) PO SCH ×2 (05:16→17:01)
[2023-05-09] MEDS: glipiZIDE-XL 2.5 MG TAB.ER.24 PO SCH (06:20)
[2023-05-09] MEDS: INSULIN SLIDING SCALE (NOVOLOG) 1 VIAL SQ SCH ×3 (06:21→17:01)
[2023-05-09] MEDS: PANTOPRAZOLE 20 MG TABLET PO SCH (09:46)
[2023-05-09] MEDS: cloNIDine HCL 0.1 MG TABLET PO SCH (09:47)
[2023-05-09] MEDS: amLODIPine BESYLATE 10 MG TABLET (FP) PO SCH (09:47)
[2023-05-09] MEDS: CARVEDILOL 25 MG TABLET (FP) PO SCH (09:47)
[2023-05-09] MEDS: TORSEMIDE 100 MG TABLET PO SCH (09:47)
[2023-05-09] MEDS: predniSONE 5 MG TABLET (UD) PO SCH (09:47)
[2023-05-09] MEDS: DEXAMETHASONE SOD PHOSPHATE 10 MG/1 ML VIAL IVPUSH SCH (09:48)
[2023-05-09] MEDS: SPIRONOLACTONE 25 MG TABLET PO SCH (09:49)
[2023-05-09 10:41] VITALS: RESP 18
[2023-05-09] MEDS ORDERED: SODIUM CHLORIDE 250 ML IV PRN (14:10)
[2023-05-09 14:13] VITALS: TEMP 97.7
[2023-05-09] MEDS ORDERED: EPOETIN ALFA-EPBX 10,000 UNIT/ML VIAL SQ ONE (14:30)
[2023-05-09 18:12] VITALS: PULSE 60
[2023-05-09] MEDS: REMDESIVIR 100 MG in SODIUM CHLORIDE 250 ML IVPB SCH (18:39)
[2023-05-09 19:23] VITALS: BP 150/85
== END 2023-05-09 20:20 | disposition home or self-care (01) | DRG 177 ==
LOC: JER 15:52 → JERBED 19:23 → J6S 21:58 → J5S 05-06 11:25 → OBSVTOIN 05-09 11:26
PROVIDERS: ADMIT Internal Medicine; ATTEND Family Medicine
PROC: 5A1D70Z Performance of Urinary Filtration, Intermittent, Less than 6 Hours Per Day (ICD-10-PCS; 2023-05-06)
PROC: XW033E5 Introduction of Remdesivir Anti-infective into Peripheral Vein, Percutaneous Approach, New Technology Group 5 (ICD-10-PCS; principal; 2023-05-09)
DX: U07.1 COVID-19 (principal); J12.82 Pneumonia due to coronavirus disease 2019; N18.6 End stage renal disease; I12.0 Hypertensive chronic kidney disease with stage 5 chronic kidney disease or end stage renal disease; T86.12 Kidney transplant failure; D61.818 Other pancytopenia; E78.5 Hyperlipidemia, unspecified; E11.22 Type 2 diabetes mellitus with diabetic chronic kidney disease; Z99.2 Dependence on renal dialysis; Y83.0 Surgical operation with transplant of whole organ as the cause of abnormal reaction of the patient, or of later complication, without mention of misadventure at the time of the procedure; Z79.84 Long term (current) use of oral hypoglycemic drugs; M10.9 Gout, unspecified; E87.5 Hyperkalemia; D63.1 Anemia in chronic kidney disease
CPT/HCPCS: 0241U-QW; 36415; 36430; 71045-TC-FY; 80048; 80053; 80197; 82272; 82962; 83540; 83735; 84132; 85025; 85027; 86140; 86850; 86900; 86901; 86922; 87040; 93005; 93010; 99285-25; C9399; G0378; J1100; P9038; P9058; Q5106

== ENCOUNTER 2023-12-06 10:09 | Inpatient (IN) | payer OTHER ==
[2023-12-06] MEDS ORDERED: ACETAMINOPHEN 500 MG TABLET (FP) PO ONE (11:53)
[2023-12-06] MEDS ORDERED: ACETAMINOPHEN 500 MG TABLET (FP) ONE (11:54)
[2023-12-06] MEDS ORDERED: VANCOMYCIN 1,000 MG in DEXTROSE 5%-WATER - 250 ML IVPB ONE (12:31)
[2023-12-06] MEDS ORDERED: PIPERACILLIN/TAZOB 4.5 GM 4.5 GM in DEXTROSE 5%-WATER 100 ML IVPB ONE (12:31)
[2023-12-06 12:59] LABS: BASO % 1.1 % (0-2.0); EOS % 0.6 % (0-4.5); HEMATOCRIT 27.3 % (35.4-49); HEMOGLOBIN 8.6 GM/dL (11.7-16.9); LYMPH % 26.5 % (8-40); MCH 26.3 pg (25.7-33.7); MCHC 31.5 g/dl (32.0-35.9); MEAN CELL VOLUME 83.7 fl (80-96); NEUT % 57.8 % (42.8-82.8); RBC 3.26 M/mm3 (4.00-5.60); RDW 23.3 % (11.9-15.9); WHITE BLOOD COUNT 7.6 K/mm3 (4.0-10.0)
[2023-12-06 13:01] LABS: INR 1.2 (0.83-1.09); PROTHROMBIN TIME (PATIENT) 13.9 SEC (9.7-13.0)
[2023-12-06 13:04] LABS: ACTIVATED PTT 30.5 SECONDS (25.2-36.5); VENOUS BASE EXCESS 2.3 mmol/L (-2-2); VENOUS O2 SATURATION 76.3 % (70-80); VENOUS PCO2 40.8 mmHg (38-52); VENOUS PH 7.434 (7.310-7.410)
[2023-12-06 13:34] LABS: CHLORIDE 100 mmol/L (98-107); POTASSIUM 5.7 mmol/L (3.5-5.1); SODIUM 136 mmol/L (136-145)
[2023-12-06 13:37] LABS: ALBUMIN 3.1 g/dl (3.4-5.0); ANION GAP 12 mmol/L (4-13); CO2 25 mmol/L (21-32); GLUCOSE,RANDOM 117 mg/dL (74-106)
[2023-12-06 13:39] LABS: SGPT/ALT 45 U/L (13-61)
[2023-12-06 13:40] LABS: CREATININE 7.7 mg/dL (0.55-1.3); SGOT/AST 18 U/L (15-37)
[2023-12-06 13:41] LABS: BILIRUBIN,TOTAL 0.7 mg/dL (0.2-1); TOT PROT 7.2 g/dl (6.4-8.2)
[2023-12-06 13:43] LABS: ALK PHOS 176 U/L (45-117)
[2023-12-06 13:59] LABS: ANISOCYTOSIS 2+; MACROCYTOSIS 0
[2023-12-06 14:00] LABS: MEAN PLT VOLUME 7.3 fl (7.5-11.1); PLATELET COUNT 235 10^3/uL (134-434)
[2023-12-06] MEDS ORDERED: PIPERACILLIN/TAZOB 4.5 GM 4.5 GM/100 ML BAG IVPB ONE (14:22)
[2023-12-06] MEDS ORDERED: VANCOMYCIN 1 GRAM (PRE-DOCKED) 1,000 MG/250 ML BAG IVPB ONE (16:55)
[2023-12-06 17:18] LABS: EPI CELLS 13 /uL (0-25.1); HYALINE CASTS 0 /uL (0-3.1); PH,URINE 8.5 (5.0-8.0); URINE APPEARANCE CLEAR; URINE BACTERIA 11 /uL (0-1359); URINE BILIRUBIN NEGATIVE (NEGATIVE); URINE COLOR YELLOW; URINE GLUCOSE (UA) NEGATIVE (NEGATIVE); URINE KETONE NEGATIVE (NEGATIVE); URINE LEUK ESTERASE NEGATIVE (NEGATIVE); URINE NITRITE NEGATIVE (NEGATIVE); URINE PROTEIN 3+ (NEGATIVE); URINE RBC 13 /uL (0-23.9); URINE UROBILINOGEN 0.2 mg/dL (0.2-1.0); URINE WBC 13 /uL (0-25.8)
[2023-12-06] MEDS ORDERED: AZITHROMYCIN IVPB 500 MG in DEXTROSE 5%-WATER - 250 ML IVPB ONE (17:37)
[2023-12-06 17:42] LABS: CHLORIDE 98 mmol/L (98-107); POTASSIUM 5.6 mmol/L (3.5-5.1); SODIUM 134 mmol/L (136-145)
[2023-12-06 17:44] LABS: ANION GAP 9 mmol/L (4-13); BLOOD UREA NITROGEN 52.9 mg/dL (7-18); CO2 27 mmol/L (21-32); GLUCOSE,RANDOM 134 mg/dL (74-106)
[2023-12-06 17:53] LABS: CREATININE 7.9 mg/dL (0.55-1.3)
[2023-12-06] MEDS ORDERED: hydrALAZINE HCL 50 MG TABLET (FP) ONE (18:01)
[2023-12-06] MEDS ORDERED: AZITHROMYCIN IVPB 500 MG/250 ML BAG IVPB ONE (18:02)
[2023-12-06] MEDS: hydrALAZINE HCL 50 MG TABLET (FP) PO SCH (18:09)
[2023-12-06 21:12] VITALS: RESP 18
[2023-12-06] MEDS: TACROLIMUS ANHYDROUS 1 MG CAPSULE PO SCH (22:22)
[2023-12-06] MEDS: cloNIDine HCL 0.1 MG TABLET PO SCH (22:48)
[2023-12-06] MEDS: PANTOPRAZOLE 20 MG TABLET PO SCH (22:48)
[2023-12-06] MEDS: SODIUM ZIRCONIUM CYCLOSILICATE (LOKELMA) 5 GM PACKET PO SCH (22:49)
[2023-12-06] MEDS: HEPARIN NA (PORCINE) 5,000 UNITS/ML 1ML VIAL SQ SCH (22:49)
[2023-12-06] MEDS: CARVEDILOL 25 MG TABLET (FP) PO SCH (22:49)
[2023-12-07] MEDS: hydrALAZINE HCL 50 MG TABLET (FP) PO SCH ×4 (00:36→17:31)
[2023-12-07] MEDS ORDERED: PIPERACILLIN/TAZOB 3.375 GM 3.375 GM in DEXTROSE 5%-WATER - 50 ML IVPB ONE (07:22)
[2023-12-07] MEDS ORDERED: SODIUM CHLORIDE 250 ML IV PRN ×2 (08:31→08:32)
[2023-12-07] MEDS ORDERED: ACETAMINOPHEN 325 MG TABLET (FP) PO PRN (10:26)
[2023-12-07 10:43] VITALS: BMI 22.9
[2023-12-07 10:56] LABS: BASO % 0.3 % (0-2.0); EOS % 2.4 % (0-4.5); HEMATOCRIT 24.7 % (35.4-49); HEMOGLOBIN 7.8 GM/dL (11.7-16.9); LYMPH % 29.5 % (8-40); MCH 25.9 pg (25.7-33.7); MCHC 31.6 g/dl (32.0-35.9); MEAN CELL VOLUME 81.8 fl (80-96); MEAN PLT VOLUME 6.9 fl (7.5-11.1); MONO % 14.5 % (3.8-10.2); NEUT % 53.3 % (42.8-82.8); PLATELET COUNT 189 10^3/uL (134-434); RBC 3.02 M/mm3 (4.00-5.60); RDW 23.3 % (11.9-15.9); WHITE BLOOD COUNT 4.8 K/mm3 (4.0-10.0)
[2023-12-07 11:29] LABS: CHLORIDE 98 mmol/L (98-107); POTASSIUM 5.3 mmol/L (3.5-5.1); SODIUM 134 mmol/L (136-145)
[2023-12-07] MEDS ORDERED: EPOETIN ALFA-EPBX 10,000 UNIT/ML VIAL IVPUSH ONE (11:30)
[2023-12-07 11:40] LABS: ALBUMIN 2.7 g/dl (3.4-5.0); BLOOD UREA NITROGEN 63.9 mg/dL (7-18); GLUCOSE,RANDOM 111 mg/dL (74-106)
[2023-12-07 11:42] LABS: ANION GAP 11 mmol/L (4-13); CALCIUM 8.4 mg/dL (8.5-10.1); CO2 26 mmol/L (21-32)
[2023-12-07 11:43] LABS: SGOT/AST 10 U/L (15-37); SGPT/ALT 29 U/L (13-61)
[2023-12-07 11:44] LABS: BILIRUBIN,TOTAL 0.7 mg/dL (0.2-1); TOT PROT 5.9 g/dl (6.4-8.2)
[2023-12-07 11:53] LABS: ALK PHOS 143 U/L (45-117); CREATININE 8.9 mg/dL (0.55-1.3)
[2023-12-07 12:16] LABS: TOTAL IRON BINDING CAPACITY 139 ug/dL (250-450)
[2023-12-07 12:17] LABS: IRON SERUM 22 ug/dL (50-175)
[2023-12-07] MEDS ORDERED: IRON SUCROSE INJECTION 200 MG in SODIUM CHLORIDE 90 ML IVPB ONE (15:00)
[2023-12-07 15:18] LABS: GAMMA GLUTAMYL TRANSPEPTIDASE 92 U/L (5-85)
[2023-12-07] MEDS: CARVEDILOL 25 MG TABLET (FP) PO SCH ×2 (15:56→22:05)
[2023-12-07] MEDS: cloNIDine HCL 0.1 MG TABLET PO SCH ×2 (15:56→22:04)
[2023-12-07] MEDS: PANTOPRAZOLE 20 MG TABLET PO SCH ×2 (15:56→22:04)
[2023-12-07] MEDS: ATORVASTATIN CA 10 MG TABLET (FP) PO SCH (15:57)
[2023-12-07] MEDS: amLODIPine BESYLATE 10 MG TABLET (FP) PO SCH (15:57)
[2023-12-07] MEDS: SODIUM ZIRCONIUM CYCLOSILICATE (LOKELMA) 5 GM PACKET PO SCH ×2 (15:58→22:05)
[2023-12-07] MEDS: HEPARIN NA (PORCINE) 5,000 UNITS/ML 1ML VIAL IVPUSH ONE ×2 (15:58→17:34)
[2023-12-07] MEDS: HEPARIN NA (PORCINE) 5,000 UNITS/ML 1ML VIAL SQ SCH ×2 (16:07→22:05)
[2023-12-07] MEDS: TACROLIMUS ANHYDROUS 1 MG CAPSULE PO SCH ×2 (16:15→22:07)
[2023-12-07] MEDS: PIPERACILLIN/TAZOB 2.25 GM 2.25 GM in DEXTROSE 5%-WATER - 50 ML IVPB SCH (18:03)
[2023-12-08] MEDS: hydrALAZINE HCL 50 MG TABLET (FP) PO SCH ×3 (01:15→18:17)
[2023-12-08] MEDS: PIPERACILLIN/TAZOB 2.25 GM 2.25 GM in DEXTROSE 5%-WATER - 50 ML IVPB SCH ×3 (01:15→18:17)
[2023-12-08 10:06] LABS: BASO % 0.4 % (0-2.0); EOS % 3.2 % (0-4.5); HEMATOCRIT 25.3 % (35.4-49); HEMOGLOBIN 7.8 GM/dL (11.7-16.9); LYMPH % 35.1 % (8-40); MCH 25.7 pg (25.7-33.7); MCHC 30.8 g/dl (32.0-35.9); MEAN CELL VOLUME 83.3 fl (80-96); MEAN PLT VOLUME 6.9 fl (7.5-11.1); MONO % 16.6 % (3.8-10.2); NEUT % 44.7 % (42.8-82.8); PLATELET COUNT 188 10^3/uL (134-434); RBC 3.04 M/mm3 (4.00-5.60); RDW 23.1 % (11.9-15.9); WHITE BLOOD COUNT 4.3 K/mm3 (4.0-10.0)
[2023-12-08 10:31] LABS: POTASSIUM 4.2 mmol/L (3.5-5.1)
[2023-12-08 10:33] LABS: CALCIUM 7.9 mg/dL (8.5-10.1)
[2023-12-08 10:34] LABS: ALBUMIN 2.5 g/dl (3.4-5.0)
[2023-12-08 10:38] LABS: BILIRUBIN,TOTAL 0.6 mg/dL (0.2-1); TOT PROT 5.9 g/dl (6.4-8.2)
[2023-12-08] MEDS: SODIUM ZIRCONIUM CYCLOSILICATE (LOKELMA) 5 GM PACKET PO SCH ×2 (10:45→22:25)
[2023-12-08] MEDS: predniSONE 5 MG TABLET (UD) PO SCH (10:45)
[2023-12-08] MEDS: HEPARIN NA (PORCINE) 5,000 UNITS/ML 1ML VIAL SQ SCH ×2 (10:45→22:24)
[2023-12-08] MEDS: cloNIDine HCL 0.1 MG TABLET PO SCH ×2 (10:45→22:23)
[2023-12-08] MEDS: TACROLIMUS ANHYDROUS 1 MG CAPSULE PO SCH ×2 (10:46→22:24)
[2023-12-08] MEDS: amLODIPine BESYLATE 10 MG TABLET (FP) PO SCH (10:46)
[2023-12-08] MEDS: ATORVASTATIN CA 10 MG TABLET (FP) PO SCH (10:46)
[2023-12-08] MEDS: CARVEDILOL 25 MG TABLET (FP) PO SCH ×2 (10:46→22:23)
[2023-12-08] MEDS: PANTOPRAZOLE 20 MG TABLET PO SCH ×2 (10:47→22:23)
[2023-12-08 10:57] LABS: BLOOD UREA NITROGEN 26.4 mg/dL (7-18)
[2023-12-09] MEDS: PIPERACILLIN/TAZOB 2.25 GM 2.25 GM in DEXTROSE 5%-WATER - 50 ML IVPB SCH ×3 (01:42→17:25)
[2023-12-09] MEDS: hydrALAZINE HCL 50 MG TABLET (FP) PO SCH ×3 (01:42→16:44)
[2023-12-09] MEDS ORDERED: SODIUM CHLORIDE 250 ML IV PRN (08:59)
[2023-12-09 09:44] LABS: HEMATOCRIT 22.4 % (35.4-49); HEMOGLOBIN 7.1 GM/dL (11.7-16.9); MCH 26.5 pg (25.7-33.7); MCHC 31.8 g/dl (32.0-35.9); MEAN CELL VOLUME 83.1 fl (80-96); MEAN PLT VOLUME 6.8 fl (7.5-11.1); PLATELET COUNT 177 10^3/uL (134-434); WHITE BLOOD COUNT 3.8 K/mm3 (4.0-10.0)
[2023-12-09 09:52] LABS: POTASSIUM 3.8 mmol/L (3.5-5.1)
[2023-12-09 09:54] LABS: BLOOD UREA NITROGEN 41.1 mg/dL (7-18); CALCIUM 7.9 mg/dL (8.5-10.1)
[2023-12-09 09:57] LABS: CREATININE 6.5 mg/dL (0.55-1.3)
[2023-12-09] MEDS: HEPARIN NA (PORCINE) 5,000 UNITS/ML 1ML VIAL SQ SCH ×2 (10:00→22:12)
[2023-12-09] MEDS ORDERED: EPOETIN ALFA-EPBX 10,000 UNIT/ML VIAL IVPUSH ONE (10:00)
[2023-12-09] MEDS: amLODIPine BESYLATE 10 MG TABLET (FP) PO SCH (13:34)
[2023-12-09] MEDS: cloNIDine HCL 0.1 MG TABLET PO SCH ×2 (13:34→22:12)
[2023-12-09] MEDS: PANTOPRAZOLE 20 MG TABLET PO SCH ×2 (13:35→22:13)
[2023-12-09] MEDS: CARVEDILOL 25 MG TABLET (FP) PO SCH ×2 (13:35→22:13)
[2023-12-09] MEDS: ATORVASTATIN CA 10 MG TABLET (FP) PO SCH (13:35)
[2023-12-09] MEDS: SODIUM ZIRCONIUM CYCLOSILICATE (LOKELMA) 5 GM PACKET PO SCH ×2 (13:36→22:13)
[2023-12-09] MEDS: TACROLIMUS ANHYDROUS 1 MG CAPSULE PO SCH ×2 (13:37→22:13)
[2023-12-10] MEDS: hydrALAZINE HCL 50 MG TABLET (FP) PO SCH ×3 (01:59→17:27)
[2023-12-10] MEDS ORDERED: PIPERACILLIN/TAZOBACTAM 2.25 GM VIAL IVPB ONE (01:59)
[2023-12-10] MEDS: PIPERACILLIN/TAZOB 2.25 GM 2.25 GM in DEXTROSE 5%-WATER - 50 ML IVPB SCH ×3 (02:01→17:27)
[2023-12-10] MEDS: HEPARIN NA (PORCINE) 5,000 UNITS/ML 1ML VIAL SQ SCH ×2 (10:53→22:24)
[2023-12-10] MEDS: cloNIDine HCL 0.1 MG TABLET PO SCH ×2 (10:53→22:24)
[2023-12-10] MEDS: SODIUM ZIRCONIUM CYCLOSILICATE (LOKELMA) 5 GM PACKET PO SCH ×2 (10:54→22:24)
[2023-12-10] MEDS: CARVEDILOL 25 MG TABLET (FP) PO SCH ×2 (10:54→22:25)
[2023-12-10] MEDS: amLODIPine BESYLATE 10 MG TABLET (FP) PO SCH (10:54)
[2023-12-10] MEDS: predniSONE 5 MG TABLET (UD) PO SCH (10:54)
[2023-12-10] MEDS: ATORVASTATIN CA 10 MG TABLET (FP) PO SCH (10:54)
[2023-12-10] MEDS: PANTOPRAZOLE 20 MG TABLET PO SCH ×2 (10:54→22:25)
[2023-12-10] MEDS: TACROLIMUS ANHYDROUS 1 MG CAPSULE PO SCH ×2 (10:55→22:25)
[2023-12-10] MEDS: INSULIN ASPART SLIDING SCALE (NOVOLOG) 1 VIAL SQ SCH (22:25)
[2023-12-11] MEDS: hydrALAZINE HCL 50 MG TABLET (FP) PO SCH ×3 (00:36→16:58)
[2023-12-11] MEDS: PIPERACILLIN/TAZOB 2.25 GM 2.25 GM in DEXTROSE 5%-WATER - 50 ML IVPB SCH ×3 (02:42→17:00)
[2023-12-11] MEDS: INSULIN ASPART SLIDING SCALE (NOVOLOG) 1 VIAL SQ SCH ×4 (06:42→22:18)
[2023-12-11 09:09] LABS: BASO % 1.1 % (0-2.0); EOS % 4.6 % (0-4.5); HEMATOCRIT 27.4 % (35.4-49); HEMOGLOBIN 8.5 GM/dL (11.7-16.9); LYMPH % 50.8 % (8-40); MCH 26.3 pg (25.7-33.7); MCHC 31.1 g/dl (32.0-35.9); MEAN CELL VOLUME 84.4 fl (80-96); MEAN PLT VOLUME 6.7 fl (7.5-11.1); MONO % 16.8 % (3.8-10.2); NEUT % 26.7 % (42.8-82.8); PLATELET COUNT 195 10^3/uL (134-434); RBC 3.24 M/mm3 (4.00-5.60); RDW 22.5 % (11.9-15.9); WHITE BLOOD COUNT 3.6 K/mm3 (4.0-10.0)
[2023-12-11 09:26] LABS: CHLORIDE 99 mmol/L (98-107); POTASSIUM 3.4 mmol/L (3.5-5.1); SODIUM 140 mmol/L (136-145)
[2023-12-11] MEDS: amLODIPine BESYLATE 10 MG TABLET (FP) PO SCH (09:27)
[2023-12-11] MEDS: ATORVASTATIN CA 10 MG TABLET (FP) PO SCH (09:27)
[2023-12-11] MEDS: SODIUM ZIRCONIUM CYCLOSILICATE (LOKELMA) 5 GM PACKET PO SCH (09:28)
[2023-12-11] MEDS: cloNIDine HCL 0.1 MG TABLET PO SCH ×2 (09:28→22:09)
[2023-12-11] MEDS: HEPARIN NA (PORCINE) 5,000 UNITS/ML 1ML VIAL SQ SCH ×2 (09:28→22:09)
[2023-12-11] MEDS: CARVEDILOL 25 MG TABLET (FP) PO SCH ×2 (09:28→22:09)
[2023-12-11] MEDS: TACROLIMUS ANHYDROUS 1 MG CAPSULE PO SCH ×2 (09:28→22:09)
[2023-12-11] MEDS: PANTOPRAZOLE 20 MG TABLET PO SCH ×2 (09:28→22:09)
[2023-12-11 09:29] LABS: ALBUMIN 2.6 g/dl (3.4-5.0); ANION GAP 12 mmol/L (4-13); BLOOD UREA NITROGEN 49.8 mg/dL (7-18); CO2 29 mmol/L (21-32); GLUCOSE,RANDOM 131 mg/dL (74-106)
[2023-12-11 09:31] LABS: SGOT/AST 13 U/L (15-37); SGPT/ALT 20 U/L (13-61)
[2023-12-11 09:33] LABS: TOT PROT 6.1 g/dl (6.4-8.2)
[2023-12-11 09:34] LABS: ALK PHOS 137 U/L (45-117); BILIRUBIN,TOTAL 0.4 mg/dL (0.2-1); CREATININE 7.6 mg/dL (0.55-1.3)
[2023-12-11 10:46] LABS: ANISOCYTOSIS 2+; MACROCYTOSIS 0
[2023-12-11] MEDS ORDERED: SODIUM CHLORIDE 250 ML IV PRN (20:06)
[2023-12-12] MEDS: hydrALAZINE HCL 50 MG TABLET (FP) PO SCH ×3 (00:48→16:44)
[2023-12-12] MEDS: PIPERACILLIN/TAZOB 2.25 GM 2.25 GM in DEXTROSE 5%-WATER - 50 ML IVPB SCH ×3 (01:33→17:03)
[2023-12-12] MEDS: INSULIN ASPART SLIDING SCALE (NOVOLOG) 1 VIAL SQ SCH ×4 (06:17→22:22)
[2023-12-12 09:09] LABS: EOS % 4.9 % (0-4.5); HEMATOCRIT 25.3 % (35.4-49); HEMOGLOBIN 8.1 GM/dL (11.7-16.9); LYMPH % 52.2 % (8-40); MCH 26.6 pg (25.7-33.7); MCHC 31.9 g/dl (32.0-35.9); MEAN CELL VOLUME 83.4 fl (80-96); MEAN PLT VOLUME 6.7 fl (7.5-11.1); MONO % 13.7 % (3.8-10.2); NEUT % 28.2 % (42.8-82.8); PLATELET COUNT 200 10^3/uL (134-434); RBC 3.03 M/mm3 (4.00-5.60); WHITE BLOOD COUNT 4.4 K/mm3 (4.0-10.0)
[2023-12-12 09:20] LABS: POTASSIUM 3.3 mmol/L (3.5-5.1); SODIUM 138 mmol/L (136-145)
[2023-12-12 09:21] LABS: CHLORIDE 98 mmol/L (98-107)
[2023-12-12 09:26] LABS: GLUCOSE,RANDOM 159 mg/dL (74-106)
[2023-12-12 09:29] LABS: CALCIUM 7.9 mg/dL (8.5-10.1); SGOT/AST 16 U/L (15-37)
[2023-12-12 09:30] LABS: ALBUMIN 2.5 g/dl (3.4-5.0); ANION GAP 15 mmol/L (4-13); BLOOD UREA NITROGEN 67.2 mg/dL (7-18); CO2 26 mmol/L (21-32)
[2023-12-12 09:32] LABS: SGPT/ALT 23 U/L (13-61)
[2023-12-12 09:35] LABS: BILIRUBIN,TOTAL 0.4 mg/dL (0.2-1)
[2023-12-12 09:36] LABS: ALK PHOS 130 U/L (45-117)
[2023-12-12 09:39] LABS: CREATININE 9.2 mg/dL (0.55-1.3)
[2023-12-12] MEDS: cloNIDine HCL 0.1 MG TABLET PO SCH ×2 (10:08→22:13)
[2023-12-12] MEDS: CARVEDILOL 25 MG TABLET (FP) PO SCH ×2 (10:08→22:13)
[2023-12-12] MEDS: predniSONE 5 MG TABLET (UD) PO SCH (10:08)
[2023-12-12] MEDS: TACROLIMUS ANHYDROUS 1 MG CAPSULE PO SCH ×2 (10:09→22:12)
[2023-12-12] MEDS: ATORVASTATIN CA 10 MG TABLET (FP) PO SCH (10:09)
[2023-12-12] MEDS: HEPARIN NA (PORCINE) 5,000 UNITS/ML 1ML VIAL SQ SCH ×2 (10:09→22:13)
[2023-12-12] MEDS: amLODIPine BESYLATE 10 MG TABLET (FP) PO SCH (10:09)
[2023-12-12] MEDS: PANTOPRAZOLE 20 MG TABLET PO SCH ×2 (10:10→22:13)
[2023-12-12] MEDS ORDERED: POTASSIUM CHLORIDE TABS 10 MEQ TABLET.ER (FP) PO ONE (16:36)
[2023-12-13] MEDS: hydrALAZINE HCL 50 MG TABLET (FP) PO SCH ×2 (00:55→08:56)
[2023-12-13] MEDS: PIPERACILLIN/TAZOB 2.25 GM 2.25 GM in DEXTROSE 5%-WATER - 50 ML IVPB SCH ×2 (01:43→10:22)
[2023-12-13] MEDS: INSULIN ASPART SLIDING SCALE (NOVOLOG) 1 VIAL SQ SCH ×2 (06:51→11:26)
[2023-12-13] MEDS: CARVEDILOL 25 MG TABLET (FP) PO SCH (10:22)
[2023-12-13] MEDS: TACROLIMUS ANHYDROUS 1 MG CAPSULE PO SCH (10:23)
[2023-12-13] MEDS: amLODIPine BESYLATE 10 MG TABLET (FP) PO SCH (10:23)
[2023-12-13] MEDS: cloNIDine HCL 0.1 MG TABLET PO SCH (10:23)
[2023-12-13] MEDS: ATORVASTATIN CA 10 MG TABLET (FP) PO SCH (10:23)
[2023-12-13] MEDS: PANTOPRAZOLE 20 MG TABLET PO SCH (10:23)
[2023-12-13] MEDS: HEPARIN NA (PORCINE) 5,000 UNITS/ML 1ML VIAL SQ SCH (10:24)
[2023-12-13 13:36] VITALS: BP 130/67; PULSE 67; TEMP 98.2
== END 2023-12-13 15:32 | disposition home or self-care (01) | DRG 193 ==
LOC: JER 10:09 → JERFT 10:09 → JERBED 16:25 → J6S 19:48
PROVIDERS: ADMIT Family Medicine; ATTEND Family Medicine
PROC: 5A1D70Z Performance of Urinary Filtration, Intermittent, Less than 6 Hours Per Day (ICD-10-PCS; principal; 2023-12-07)
DX: J18.9 Pneumonia, unspecified organism (principal); N18.6 End stage renal disease; I12.0 Hypertensive chronic kidney disease with stage 5 chronic kidney disease or end stage renal disease; T86.12 Kidney transplant failure; E11.22 Type 2 diabetes mellitus with diabetic chronic kidney disease; Z99.2 Dependence on renal dialysis; E78.5 Hyperlipidemia, unspecified; Y83.0 Surgical operation with transplant of whole organ as the cause of abnormal reaction of the patient, or of later complication, without mention of misadventure at the time of the procedure; E87.5 Hyperkalemia; M10.9 Gout, unspecified; K82.4 Cholesterolosis of gallbladder; D63.1 Anemia in chronic kidney disease
CPT/HCPCS: 0241U-QW; 36415; 36430; 71046-TC-FY; 71250-TC; 76705-TC; 80048; 80053; 80197; 81003; 82550; 82553; 82728; 82803; 82962; 82977; 83540; 83550; 83605; 84443; 84466; 84484; 85025; 85027; 85610; 85730; 86704; 86705; 86803; 86850; 86900; 86901; 86922; 87040; 87081; 87086; 87340; 87899; 93005; 93010; 99285-25; J1644; J1756; P9058; Q5106

== ENCOUNTER 2024-09-17 23:43 | Observation (INO) | payer OTHER ==
[2024-09-18 00:05] VITALS: BMI 24.3
[2024-09-18 01:09] LABS: BASO % 0.9 % (0-2.0); EOS % 3.1 % (0-4.5); HEMATOCRIT 36.1 % (35.4-49); HEMOGLOBIN 11.3 GM/dL (11.7-16.9); LYMPH % 32.8 % (8-40); MCH 24.8 pg (25.7-33.7); MCHC 31.4 g/dl (32.0-35.9); MEAN CELL VOLUME 78.8 fl (80-96); MEAN PLT VOLUME 7.9 fl (7.5-11.1); MONO % 10.7 % (3.8-10.2); NEUT % 52.5 % (42.8-82.8); PLATELET COUNT 152 10^3/uL (134-434); RBC 4.58 M/mm3 (4.00-5.60); RDW 18.6 % (11.9-15.9); WHITE BLOOD COUNT 6.1 K/mm3 (4.0-10.0)
[2024-09-18 01:17] LABS: INR 0.96 (0.83-1.09)
[2024-09-18 01:29] LABS: CHLORIDE 106 mmol/L (98-107); SODIUM 141 mmol/L (136-145)
[2024-09-18 01:31] LABS: CALCIUM 8.8 mg/dL (8.5-10.1)
[2024-09-18 01:32] LABS: ALBUMIN 3.6 g/dl (3.4-5.0); BLOOD UREA NITROGEN 46.7 mg/dL (7-18); CO2 29 mmol/L (21-32); GLUCOSE,RANDOM 87 mg/dL (74-106)
[2024-09-18 01:35] LABS: SGOT/AST 41 U/L (15-37); SGPT/ALT 18 U/L (13-61)
[2024-09-18 01:37] LABS: BILIRUBIN,TOTAL 0.4 mg/dL (0.2-1); TOT PROT 7.2 g/dl (6.4-8.2)
[2024-09-18 01:38] LABS: ALK PHOS 99 U/L (45-117)
[2024-09-18 02:12] LABS: ANION GAP 6 mmol/L (4-13); CREATININE 7.8 mg/dL (0.55-1.3); POTASSIUM 6.6 mmol/L (3.5-5.1)
[2024-09-18 04:24] LABS: CHLORIDE 107 mmol/L (98-107); POTASSIUM 4.4 mmol/L (3.5-5.1); SODIUM 144 mmol/L (136-145)
[2024-09-18 04:26] LABS: ALBUMIN 3.6 g/dl (3.4-5.0); CALCIUM 9.4 mg/dL (8.5-10.1)
[2024-09-18 04:27] LABS: ANION GAP 7 mmol/L (4-13); BLOOD UREA NITROGEN 48.1 mg/dL (7-18); CO2 29 mmol/L (21-32); GLUCOSE,RANDOM 97 mg/dL (74-106)
[2024-09-18 04:29] LABS: SGPT/ALT 11 U/L (13-61)
[2024-09-18 04:30] LABS: SGOT/AST 5 U/L (15-37)
[2024-09-18 04:31] LABS: BILIRUBIN,TOTAL 0.3 mg/dL (0.2-1); TOT PROT 6.5 g/dl (6.4-8.2)
[2024-09-18 04:33] LABS: ALK PHOS 88 U/L (45-117)
[2024-09-18] MEDS ORDERED: ACETAMINOPHEN 325 MG TABLET (FP) PO PRN (06:15)
[2024-09-18] MEDS ORDERED: hydrALAZINE HCL 50 MG TABLET (FP) ONE ×2 (06:42→22:08)
[2024-09-18] MEDS: hydrALAZINE HCL 50 MG TABLET (FP) PO SCH (06:51)
[2024-09-18 07:17] LABS: MAGNESIUM 2.3 mg/dL (1.8-2.4)
[2024-09-18 07:21] LABS: CHOLESTEROL 100 mg/dL (50-200)
[2024-09-18 07:22] LABS: LDL CHOLESTEROL (ONLY SJRH) 57 mg/dL (5-100)
[2024-09-18 07:25] LABS: HDL CHOLESTEROL 38 mg/dL (40-60)
[2024-09-18] MEDS: amLODIPine BESYLATE 10 MG TABLET (FP) PO SCH (09:21)
[2024-09-18] MEDS: cloNIDine HCL 0.1 MG TABLET PO SCH (09:21)
[2024-09-18] MEDS: PANTOPRAZOLE 20 MG TABLET PO SCH (09:21)
[2024-09-18] MEDS: TORSEMIDE 100 MG TABLET PO SCH (09:21)
[2024-09-18] MEDS: CARVEDILOL 25 MG TABLET (FP) PO SCH (09:21)
[2024-09-18] MEDS: INSULIN ASPART SLIDING SCALE (NOVOLOG) 1 VIAL SQ SCH (10:54)
[2024-09-18] MEDS: TACROLIMUS ANHYDROUS 1 MG CAPSULE PO SCH (10:54)
[2024-09-18] MEDS ORDERED: SODIUM CHLORIDE 250 ML IV PRN (16:48)
[2024-09-18] MEDS ORDERED: INSULIN ASPART SLIDING SCALE (NOVOLOG) 1 VIAL SQ ONE (17:33)
[2024-09-18] MEDS ORDERED: PANTOPRAZOLE 20 MG TABLET PO ONE (22:07)
[2024-09-18] MEDS ORDERED: cloNIDine HCL 0.1 MG TABLET ONE (22:07)
[2024-09-18] MEDS ORDERED: CARVEDILOL 25 MG TABLET (FP) ONE (22:08)
[2024-09-19] MEDS ORDERED: hydrALAZINE HCL 50 MG TABLET (FP) ONE (05:24)
[2024-09-19 06:34] LABS: BASO % 0.7 % (0-2.0); EOS % 3.4 % (0-4.5); HEMATOCRIT 37.1 % (35.4-49); HEMOGLOBIN 11.5 GM/dL (11.7-16.9); LYMPH % 41.8 % (8-40); MCH 24.5 pg (25.7-33.7); MCHC 30.9 g/dl (32.0-35.9); MEAN CELL VOLUME 79.3 fl (80-96); MEAN PLT VOLUME 7.7 fl (7.5-11.1); MONO % 10.3 % (3.8-10.2); NEUT % 43.8 % (42.8-82.8); PLATELET COUNT 156 10^3/uL (134-434); RBC 4.68 M/mm3 (4.00-5.60); RDW 18.7 % (11.9-15.9)
[2024-09-19] MEDS: glipiZIDE-XL 2.5 MG TAB.ER.24 PO SCH (06:44)
[2024-09-19 06:49] LABS: CHLORIDE 105 mmol/L (98-107); POTASSIUM 4.3 mmol/L (3.5-5.1); SODIUM 140 mmol/L (136-145)
[2024-09-19 06:55] LABS: ALBUMIN 3.6 g/dl (3.4-5.0); ANION GAP 9 mmol/L (4-13); BLOOD UREA NITROGEN 68.4 mg/dL (7-18); CALCIUM 9.9 mg/dL (8.5-10.1); CO2 26 mmol/L (21-32); GLUCOSE,RANDOM 90 mg/dL (74-106)
[2024-09-19 06:58] LABS: SGPT/ALT 11 U/L (13-61)
[2024-09-19 07:00] LABS: BILIRUBIN,TOTAL 0.4 mg/dL (0.2-1); TOT PROT 6.6 g/dl (6.4-8.2)
[2024-09-19 07:01] LABS: ALK PHOS 88 U/L (45-117)
[2024-09-19 07:32] LABS: CREATININE 10.2 mg/dL (0.55-1.3); SGOT/AST < 3 U/L (15-37)
[2024-09-19 08:35] VITALS: TEMP 98.2
[2024-09-19] MEDS ORDERED: cloNIDine HCL 0.1 MG TABLET ONE (12:07)
[2024-09-19] MEDS ORDERED: amLODIPine BESYLATE 10 MG TABLET (FP) ONE (12:07)
[2024-09-19] MEDS ORDERED: CARVEDILOL 25 MG TABLET (FP) ONE (12:07)
[2024-09-19] MEDS ORDERED: PANTOPRAZOLE 20 MG TABLET PO ONE (12:07)
[2024-09-19 12:26] VITALS: RESP 16
[2024-09-19 15:04] VITALS: PULSE 64
[2024-09-19 17:09] VITALS: BP 139/84
[2024-09-19] MEDS: hydrALAZINE HCL 25 MG TABLET (FP) PO ONE (17:17)
[2024-09-20] MEDS ORDERED: NIFEdipine E.R 60 MG TABLET PO SCH (10:00)
== END 2024-09-19 18:40 | disposition home or self-care (01) ==
LOC: JER 23:43 → JERBED 09-18 01:20
PROVIDERS: ADMIT Internal Medicine; ATTEND Internal Medicine
DX: G45.9 Transient cerebral ischemic attack, unspecified (principal); N18.6 End stage renal disease; E11.22 Type 2 diabetes mellitus with diabetic chronic kidney disease; I12.0 Hypertensive chronic kidney disease with stage 5 chronic kidney disease or end stage renal disease; Z99.2 Dependence on renal dialysis; Z85.00 Personal history of malignant neoplasm of unspecified digestive organ; E78.5 Hyperlipidemia, unspecified; T86.11 Kidney transplant rejection; R01.1 Cardiac murmur, unspecified; M10.9 Gout, unspecified; D64.9 Anemia, unspecified
CPT/HCPCS: 36415; 70450-TC; 71045-TC-FY; 80053; 80061; 82550; 82553; 82962; 83036; 83735; 84484; 85025; 85610; 85730; 86803; 86850; 86900; 86901; 87340; 93005; 93010; 93306-TC; 93880-TC; 99285-25; G0378

== ENCOUNTER 2024-10-01 01:45 | Observation (INO) | payer OTHER ==
[2024-10-01 02:09] VITALS: BMI 22.6
[2024-10-01] MEDS: METOCLOPRAMIDE HCL INJECTION 10 MG/2 ML VIAL IVPB ONE ×3 (02:27→05:00)
[2024-10-01] MEDS: ACETAMINOPHEN 1000 MG/100 ML BAG IVPB ONE (02:27)
[2024-10-01] MEDS ORDERED: ACETAMINOPHEN 325 MG TABLET (FP) ONE (02:27)
[2024-10-01] MEDS ORDERED: METOCLOPRAMIDE HCL 10 MG TABLET (FP) PO ONE (02:28)
[2024-10-01] MEDS: METOCLOPRAMIDE HCL 10 MG TABLET (FP) PO ONE (02:32)
[2024-10-01] MEDS: ACETAMINOPHEN 500 MG TABLET (FP) PO ONE (02:32)
[2024-10-01 04:01] LABS: HIV INTERPRETATION NEGATIVE (NEGATIVE)
[2024-10-01] MEDS ORDERED: ONDANSETRON 4 MG/2 ML VIAL ONE (04:12)
[2024-10-01] MEDS ORDERED: FAMOTIDINE 20 MG/50 ML IVPB 20 MG/50 ML MG IVPB ONE (04:12)
[2024-10-01] MEDS: ONDANSETRON 4 MG/2 ML VIAL IVPUSH ONE (04:20)
[2024-10-01] MEDS: FAMOTIDINE 20 MG/50 ML IVPB 20 MG/50 ML MG IVPB ONE (04:20)
[2024-10-01] MEDS ORDERED: METOCLOPRAMIDE HCL INJECTION 10 MG/2 ML VIAL ONE (04:51)
[2024-10-01 05:06] LABS: BASO % 0.5 % (0-2.0); CHLORIDE 102 mmol/L (98-107); EOS % 2.1 % (0-4.5); HEMATOCRIT 35.3 % (35.4-49); HEMOGLOBIN 11.3 GM/dL (11.7-16.9); MCHC 31.9 g/dl (32.0-35.9); MEAN CELL VOLUME 78.2 fl (80-96); MEAN PLT VOLUME 8.4 fl (7.5-11.1); MONO % 8.8 % (3.8-10.2); NEUT % 58.6 % (42.8-82.8); PLATELET COUNT 174 10^3/uL (134-434); POTASSIUM 5.5 mmol/L (3.5-5.1); RBC 4.51 M/mm3 (4.00-5.60); RDW 19.9 % (11.9-15.9); SODIUM 138 mmol/L (136-145)
[2024-10-01 05:08] LABS: ALBUMIN 4.3 g/dl (3.4-5.0); CALCIUM 9.4 mg/dL (8.5-10.1)
[2024-10-01 05:09] LABS: ANION GAP 13 mmol/L (4-13); BLOOD UREA NITROGEN 84.6 mg/dL (7-18); CO2 23 mmol/L (21-32); GLUCOSE,RANDOM 121 mg/dL (74-106); MAGNESIUM 2.6 mg/dL (1.8-2.4)
[2024-10-01 05:12] LABS: SGPT/ALT 18 U/L (13-61)
[2024-10-01 05:13] LABS: BILIRUBIN,TOTAL 0.5 mg/dL (0.2-1); TOT PROT 7.6 g/dl (6.4-8.2)
[2024-10-01 05:14] LABS: ALK PHOS 114 U/L (45-117)
[2024-10-01 05:18] LABS: CREATININE 11.9 mg/dL (0.55-1.3); SGOT/AST < 3 U/L (15-37)
[2024-10-01] MEDS ORDERED: DEXTROSE 50%-WATER 25 GM/50 ML DISP.SYRIN ONE (05:24)
[2024-10-01] MEDS ORDERED: INSULIN REGULAR HUMAN 100 UNITS/ML *VIAL ONE (05:24)
[2024-10-01] MEDS: DEXTROSE 50%-WATER - 25 GM/50 ML VIAL IVPUSH ONE (05:35)
[2024-10-01] MEDS: INSULIN REGULAR HUMAN 100 UNITS/ML *VIAL IVPUSH ONE (05:41)
[2024-10-01] MEDS: hydrALAZINE HCL 50 MG TABLET (FP) PO SCH (08:08)
[2024-10-01] MEDS: cloNIDine HCL 0.1 MG TABLET PO SCH (09:32)
[2024-10-01] MEDS: CARVEDILOL 25 MG TABLET (FP) PO SCH (09:32)
[2024-10-01] MEDS: NIFEdipine E.R 60 MG TABLET PO SCH (09:32)
[2024-10-01] MEDS ORDERED: ONDANSETRON 4 MG/2 ML VIAL IVPUSH PRN (10:00)
[2024-10-01] MEDS ORDERED: HEPARIN NA (PORCINE) 5,000 UNITS/ML 1ML VIAL IVPUSH ONE (10:01)
[2024-10-01] MEDS ORDERED: SODIUM CHLORIDE 250 ML IV PRN (10:01)
[2024-10-01] MEDS: INSULIN ASPART SLIDING SCALE (NOVOLOG) 1 VIAL SQ SCH (17:24)
[2024-10-01] MEDS: TACROLIMUS ANHYDROUS 1 MG CAPSULE PO SCH (19:12)
[2024-10-02 09:41] LABS: BASO % 0.3 % (0-2.0); EOS % 0.9 % (0-4.5); HEMATOCRIT 34.4 % (35.4-49); HEMOGLOBIN 10.9 GM/dL (11.7-16.9); LYMPH % 28.6 % (8-40); MCH 24.7 pg (25.7-33.7); MCHC 31.6 g/dl (32.0-35.9); MEAN CELL VOLUME 78.2 fl (80-96); MEAN PLT VOLUME 7.9 fl (7.5-11.1); NEUT % 57.2 % (42.8-82.8); PLATELET COUNT 145 10^3/uL (134-434); RBC 4.39 M/mm3 (4.00-5.60); RDW 20.6 % (11.9-15.9); WHITE BLOOD COUNT 8.4 K/mm3 (4.0-10.0)
[2024-10-02 10:22] LABS: ANISOCYTOSIS 1+; MACROCYTOSIS 0
[2024-10-02 10:27] LABS: CHLORIDE 100 mmol/L (98-107); POTASSIUM 5.2 mmol/L (3.5-5.1); SODIUM 136 mmol/L (136-145)
[2024-10-02 10:34] LABS: BLOOD UREA NITROGEN 48.3 mg/dL (7-18)
[2024-10-02 10:36] LABS: BILIRUBIN,TOTAL 0.5 mg/dL (0.2-1)
[2024-10-02 10:37] LABS: ALK PHOS 87 U/L (45-117)
[2024-10-02 10:38] LABS: ANION GAP 5 mmol/L (4-13); CALCIUM 8.9 mg/dL (8.5-10.1); CO2 31 mmol/L (21-32); GLUCOSE,RANDOM 89 mg/dL (74-106)
[2024-10-02 10:42] LABS: SGOT/AST 7 U/L (15-37); SGPT/ALT 12 U/L (13-61)
[2024-10-02 10:43] LABS: ALBUMIN 3.4 g/dl (3.4-5.0); CREATININE 8.6 mg/dL (0.55-1.3); TOT PROT 6.4 g/dl (6.4-8.2)
[2024-10-02] MEDS: MAGNESIUM OXIDE 400 MG TABLET (FP) PO SCH (13:54)
[2024-10-02 14:50] VITALS: PULSE 75; RESP 18; TEMP 99.9
[2024-10-02 16:09] VITALS: BP 155/85
== END 2024-10-02 16:00 | disposition home or self-care (01) ==
LOC: JER 01:45 → JERBED 05:31 → J8W 06:52
PROVIDERS: ADMIT Internal Medicine; ATTEND Internal Medicine
PROC: 3E033GC Introduction of Other Therapeutic Substance into Peripheral Vein, Percutaneous Approach (ICD-10-PCS; principal; 2024-10-01)
PROC: 3E033VG Introduction of Insulin into Peripheral Vein, Percutaneous Approach (ICD-10-PCS; 2024-10-01)
DX: E11.22 Type 2 diabetes mellitus with diabetic chronic kidney disease (principal); I12.0 Hypertensive chronic kidney disease with stage 5 chronic kidney disease or end stage renal disease; N18.6 End stage renal disease; Z99.2 Dependence on renal dialysis; Z85.028 Personal history of other malignant neoplasm of stomach; N20.0 Calculus of kidney; Z94.0 Kidney transplant status; D64.9 Anemia, unspecified; Z86.16 Personal history of COVID-19
CPT/HCPCS: 0241U-QW; 36415; 70450-TC; 80053; 82962; 83735; 85025; 86803; 87389; 93005; 93010; 96365; 96375; 99285-25; G0378